=== PATIENT | female | born 1960 | race Caucasian/White ===

== ENCOUNTER 2021-08-26 10:00 | Outpatient (CLI) | payer MEDICARE, SELFPAY ==
--- NOTE | ~2021-08-26 | XR_ITS ---
EXAMINATION: XR ankle RT min 3V, XR foot RT min 3V DATE: 08/26/2021 10:39 INDICATION: Lateral sided right foot and ankle pain post fall TECHNIQUE: 1. Anteroposterior, mortise, additional oblique and lateral view of the right ankle were obtained. 2. Dorsoplantar, two oblique and lateral views of the right foot were obtained. COMPARISON: None. FINDINGS: Alignment of the right foot and ankle is normal. No fracture. Mild osteoarthritis at the tibiotalar, first metatarsophalangeal and a few tarsal metatarsal and interphalangeal joints. Small plantar calca nallely spur. No ankle joint effusion. Soft tissue swelling with subcutaneous edema about the ankle and distal calf. IMPRESSION: 1. No acute osseous abnormality. Reviewed, dictated and finalized at location A. SCREWER IMPRESSION: 1. No acute osseous abnormality.
== END 2021-08-26 10:01 | disposition home or self-care (01) ==
PROVIDERS: PCP Family Medicine Adolescent Medicine; Visit Provider Physician Assistant
DX: M25.572 Pain in left ankle and joints of left foot (principal)
CPT/HCPCS: 73610; 73630

== ENCOUNTER → 2021-12-02 06:56 | Outpatient (CLI) | payer MEDICARE, SELFPAY ==
--- NOTE | ~2021-12-02 | XR_ITS ---
XR tibia fibula RT 2V DATE: 12/02/2021 07:40 INDICATION: Right lower leg pain TECHNIQUE: AP and lateral views COMPARISON: None FINDINGS: Osteopenia. No fracture or dislocation, periosteal reaction or bone destruction. Normal ali gnment at the knee and ankle joints. Mild posterior and plantar calcaneal enthesopathy. IMPRESSION: Calcaneal enthesopathy Osteopenia Reviewed, dictated and finalized at location A. DESK ANALYST
--- NOTE | ~2021-12-02 | XR_ITS ---
XR hip RT 2V w AP pelvis DATE: 12/02/2021 07:41 INDICATION: Hip pain TECHNIQUE: AP pelvis. AP and lateral views of right hip COMPARISON: None FINDINGS: No pelvic fracture or bone destruction. The pubic symphysis and sacroiliac joints are intac t. Hip joint spaces are symmetric and relatively preserved. No fracture or dislocation, avascular necrosis or bone destruction of the right hip. IMPRESSION: No significant abnormality Reviewed, dictated and finalized at location A. TURBINE ELECTRICAL ENGINEER IMPRESSION: No significant abnormality
--- NOTE | ~2021-12-02 | XR_ITS ---
XR knee RT 3V DATE: 12/02/2021 07:40 INDICATION: Right lower leg pain TECHNIQUE: [place] and standing AP and lateral views COMPARISON: 08/31/2010 right knee FINDINGS: There is periarticular spurring at all 3 compartments and moderately prominent joint space target the medial compartment. No fracture or dislocation or joint effusion. No radiopaque interarticular loose body or chondrocalci nosis. There is diffuse osteopenia. No periosteal reaction or bone destruction. IMPRESSION: Tricompartment osteophytosis, most prominent at the medial compartment Osteopenia Reviewed, dictated and finalized at location A. OPERATOR IMPRESSION: Tricompartment osteophytosis, most prominent at the medial compartm ent Osteopenia
== END ==
PROVIDERS: PCP Family Medicine Adolescent Medicine; Visit Provider Family Medicine Adolescent Medicine
DX: M25.551 Pain in right hip (principal); M79.661 Pain in right lower leg; M77.31 Calcaneal spur, right foot; M85.861 Other specified disorders of bone density and structure, right lower leg; M25.771 Osteophyte, right ankle
CPT/HCPCS: 73502; 73562; 73590

== ENCOUNTER 2022-08-14 13:41 | Emergency (ER) | payer MEDICARE, MEDICAID, SELFPAY ==
[2022-08-14 13:48] VITALS: BP 173/91; PULSE 71; RESP 18; TEMP 37.3; O2SAT 100
--- NOTE | 2022-08-14 13:58 | ED.GENADULT ---
HPI - General Adult General Chief complaint: Epistaxis Stated complaint: nose bleed Time Seen by Provider: 08/14/22 13:48 Source: patient, RN notes reviewed and old records reviewed Mode of arrival: ambulatory Limitations: no limitations History of Present Illness HPI narrative: 61-year-old female presents to the [facility] with complaints of elevated blood pressure and a nose bleed. Currently nose is not bleeding. Has no other complaints at this time. Denies chest pain or headache. Related Data Home Medications Medication Instructions Recorded Confirmed omeprazole 40 mg capsule,delayed 40 mg PO DAILY 11/30/21 08/14/22 release cholecalciferol (vitamin D3) 50 50 mcg PO DAILY 05/20/22 05/20/22 mcg (2,000 unit) capsule herbal drugs tablet PO 05/20/22 05/20/22 hydrocodone 5 mg-acetaminophen 325 0.5 tablet PO BID PRN 05/20/22 05/20/22 mg tablet srnxfcwq-jkf-lvsdl acid 300 1 tablet PO DAILY 05/20/22 08/14/22 mcg-lycopene 600 mcg-lutein 300 mcg tablet (Men 50 Plus Multivitamin) vitamin Bcomplex no.10-folic acid tablet PO 05/20/22 05/20/22 ER 400 mcg tablet,extended release Allergies Allergy/AdvReac Type Severity Reaction Status Date / Time duloxetine AdvReac Severe Confusion Verified 08/14/22 14:00 gabapentin AdvReac Mild sleep walk Verified 08/14/22 14:00 Contrast Media Allergy Unknown RASH Uncoded 08/14/22 14:00 Review of Systems Review of Systems: All systems reviewed & are unremarkable except as noted in HPI and below Constitutional: Constitutional: Reports no additional constitutional complaints, Denies chills and Denies fever(s) Eyes: Eyes: Reports no additional eye complaints ENT: Reports as per HPI and Denies dizziness Cardiovascular: Cardiovascular: Reports no additional cardiovascular complaints Respiratory: Respiratory: Reports no additional respiratory complaints Gastrointestinal: Gastrointestinal: Reports no additional gastrointestinal complaints Musculoskeletal: Musculoskeletal: Reports no additional musculoskeletal complaints Integumentary/Breasts: Skin/Breast: Reports system reviewed and no additional complaints, except as docu Neurologic: Reports system reviewed and no additional complaints, except as documented Psychiatric: Psychiatric: Reports no additional psychiatric complaints Allergic/Immunologic: Allergic/Immunologic: Reports no additional allergic/immunologic complaints PMFSH Past Medical History Medical History Abnormal colonoscopy 09/20/19 3 polyps Surgical History Surgical History History of appendectomy History of bariatric surgery Gastric Sleeve 2017 History of section History of cholecystectomy 2018 Family History Family History Father Acute myocardial infarction Cerebrovascular accident Heart disease Hypertension Sibling Asthma Depression Hypertension Mother Carcinoma of colon Sibling Depression Daughter Depression Son Depression Other Colon polyp Social History Social History Smoking packs per day: 1 Smoking cigarettes per day: 20.0 Years smoked: 20 Smoking pack-years: 20.00 Smoking status: Former smoker Tobacco type: cigarettes Second hand tobacco smoke exposure: No Smoking end date: 10/03/99 Alcohol intake: never Substance use: never Substance use type: does not use Gender identity (if verbalized by the patient): Female Sexual Orientation (if Verbalized by the Patient): Straight or Heterosexual Spiritual care concerns: No Agree to blood products: Yes Comments At the time of my signature, I reviewed and agree with the nursing past medical, surgical, social, and family history. There is no relevant family history pertinent to the patient complaint.
== END 2022-08-14 14:07 | disposition home or self-care (01) ==
PROVIDERS: Emergency Provider Nurse Practitioner; PCP Family Medicine Adolescent Medicine
DX: I10 Essential (primary) hypertension (principal); R04.0 Epistaxis; Z87.891 Personal history of nicotine dependence; Z98.84 Bariatric surgery status
CPT/HCPCS: 99211; G0463

== ENCOUNTER 2022-09-02 18:50 | Emergency (ER) | payer MEDICARE, MEDICAID, SELFPAY ==
--- NOTE | 2022-09-02 18:52 | ED.FEMALEGU ---
HPI - Female Genitourinary General Chief complaint: Urogenital-Female Stated complaint: Urinary Problem Time Seen by Provider: 09/02/22 18:52 Source: patient and RN notes reviewed History of Present Illness HPI Narrative: Patient is a 61-year-old female who presents to the Urgent Care with complaints of a possible UTI with symptoms that started today with urinary frequency, suprapubic pressure and urgency. Patient denies any history of UTIs. States that she does have a history of kidney stones but denies blood in the urine, back pain. Patient denies any fevers, nausea, vomiting. Patient did take azo at approximately 3:00 p.m. this afternoon. No other acute complaints. No acute distress noted. Patient aware of the plan of care. Some parts of this dictation were generated by voice recognition software and may contain typographical and/or grammatical inaccuracies. Related Data Home Medications Medication Instructions Recorded Confirmed omeprazole 40 mg capsule,delayed 40 mg PO DAILY 11/30/21 09/02/22 release cholecalciferol (vitamin D3) 50 50 mcg PO DAILY 05/20/22 09/02/22 mcg (2,000 unit) capsule herbal drugs tablet PO 05/20/22 05/20/22 hydrocodone 5 mg-acetaminophen 325 0.5 tablet PO BID PRN Pain 05/20/22 09/02/22 mg tablet wptqfuig-joz-jpvdh acid 300 1 tablet PO DAILY 05/20/22 09/02/22 mcg-lycopene 600 mcg-lutein 300 mcg tablet (Men 50 Plus Multivitamin) vitamin Bcomplex no.10-folic acid tablet PO 05/20/22 05/20/22 ER 400 mcg tablet,extended release naproxen 500 mg tablet 500 mg PO BID 09/02/22 09/02/22 Allergies Allergy/AdvReac Type Severity Reaction Status Date / Time duloxetine AdvReac Severe Confusion Verified 09/02/22 19:00 gabapentin AdvReac Mild sleep walk Verified 09/02/22 19:00 Contrast Media Allergy Unknown RASH Uncoded 09/02/22 19:00 Review of Systems Review of Systems: CONSTITUTIONAL: Denies fever, chills, or sweats. EYES: Denies visual changes, redness, or discharge. ENT: Denies rhinorrhea, congestion, sore throat, or otalgia. CARDIOVASCULAR: Denies chest pain, palpitations, or edema. RESPIRATORY: Denies cough or dyspnea. GASTROINTESTINAL: Denies abdominal pain, nausea, vomiting, or diarrhea. GENITOURINARY: Reports of dysuria, suprapubic pressure, urgency and frequency SKIN: Denies rash or itching. MUSCULOSKELETAL: Denies back pain, joint pain, or myalgia. NEUROLOGIC: Denies headache, numbness, or weakness. All other systems reviewed are negative, except as documented in HPI. [facility] Past Medical History Medical History Abnormal colonoscopy 09/20/19 3 polyps Surgical History Surgical History History of appendectomy History of bariatric surgery Gastric Sleeve 2017 History of section History of cholecystectomy 2018 Family History Family History Father Acute myocardial infarction Cerebrovascular accident Heart disease Hypertension Sibling Asthma Depression Hypertension Mother Carcinoma of colon Sibling Depression Daughter Depression Son Depression Other Colon polyp Social History Social History Smoking packs per day: 1 Smoking cigarettes per day: 20.0 Years smoked: 20 Smoking pack-years: 20.00 Smoking status: Former smoker Tobacco type: cigarettes Second hand tobacco smoke exposure: No Smoking end date: 10/03/99 Alcohol intake: never Substance use: never Substance use type: does not use Gender identity (if verbalized by the patient): Female Sexual Orientation (if Verbalized by the Patient): Straight or Heterosexual Spiritual care concerns: No Agree to blood products: Yes Comments At the time of my signature, I reviewed and agree with the nursing past medical, surgical, social,
[2022-09-02 19:00] VITALS: BP 179/96; PULSE 88; RESP 16; TEMP 37.6; O2SAT 100
[2022-09-02 19:03] VITALS: BP 179/96; PULSE 88; RESP 16; TEMP 37.6; O2SAT 100
== END 2022-09-02 19:19 | disposition home or self-care (01) ==
PROVIDERS: Emergency Provider Nurse Practitioner Family; PCP Family Medicine Adolescent Medicine
DX: N39.0 Urinary tract infection, site not specified (principal); Z87.891 Personal history of nicotine dependence
CPT/HCPCS: 81003; 87077; 87086; 87186; 99213; G0463

== ENCOUNTER 2023-02-04 07:53 | Outpatient (CLI) | payer MEDICARE, MEDICAID, SELFPAY ==
--- NOTE | ~2023-02-04 | US_ITS ---
EXAMINATION: US abdomen complete DATE: 02/04/2023 08:52 INDICATION: Preoperative evaluation for bariatric surgery revision TECHNIQUE: Multiple grayscale and Doppler ultrasound images of the abdomen were obtained. COMPARISON: CT dated 01/02/2008 FINDINGS: The pancreatic head and body are normal in appearance. The pancreatic tail is not visualized. Liver has normal echogenicity and contour, with a smooth surface. No liver lesion identified. No intrahepat ic biliary duct dilation suspected. Portal venous flow was seen in the hepatopetal, normal direction and has normal Doppler waveform. The visualized proximal to mid inferior vena cava is normal. Gallbla dder is not visualized and reportedly surgically absent. Common bile duct measures 405 mm in maximal diameter which is within normal limits. There is normal renal contour and echogenicity bilaterally. T he right kidney measures 13.3 x 6.1 x 4.6 cm and the left 13.0 x 5.5 x 6.1 cm. There are no focal re nal lesions identified. There is no hydronephrosis. Normal spleen measuring 12.1 cm maximal cranioca udal length. Visualized aorta is normal in caliber measuring 2.4 cm AP diameter proximally, 2.0 cm in the mid aorta and 1.9 cm in the distal aorta. The right common iliac artery measures 1.1 cm in the l eft common iliac artery measures 1.4 cm. IMPRESSION: 1. Status post cholecystectomy. Otherwise unremarkable abdominal ultrasound. Reviewed, dictated and finalized at location B.
== END 2023-02-04 07:54 | disposition home or self-care (01) ==
PROVIDERS: PCP Family Medicine Adolescent Medicine; Visit Provider Family Medicine Adolescent Medicine
DX: E66.01 Morbid (severe) obesity due to excess calories (principal); Z90.49 Acquired absence of other specified parts of digestive tract
CPT/HCPCS: 76700

== ENCOUNTER 2023-02-23 09:23 | Outpatient (CLI) | payer MEDICARE, MEDICAID, SELFPAY ==
[2023-02-23 09:50] LABS: Pregnancy On Board Control Positive; Urine Pregnancy Test Negative
--- NOTE | 2023-02-25 10:51 | WPDPFTINT ---
PFT Procedure Performed PFT Procedure Performed Plethysmography (Lung Vol) Diffusing Cap (DLCO) Flow Vol Loop Spirometry w/o Bronchodil PFT Interpretation Lung volumes were measured with the body plethysmography method. The diminished expiratory reserve volume is due to obesity. The remaining lung volumes are unremarkable. Spirometry showed normal expiratory flow rates and a normal FEV1 to FVC ratio of 83%. No post bronchodilator study carried out. Lung diffusion capacity is within the normal range at 119% predicted. The flow-volume loop is unremarkable. Impression: Spirometry, lung volumes, and lung diffusion capacity all within the normal range.
== END 2023-02-23 09:24 | disposition home or self-care (01) ==
PROVIDERS: PCP Family Medicine Adolescent Medicine; Visit Provider Family Medicine Adolescent Medicine
DX: Z01.818 Encounter for other preprocedural examination (principal)
CPT/HCPCS: 81025; 94375; 94726; 94729

== ENCOUNTER 2023-12-30 07:28 | Outpatient (CLI) | payer MEDICARE, SELFPAY ==
--- NOTE | 2023-12-30 07:50 | ECHO_ITS ---
Patient Info Name: Genoveva Morales Age: 63 years : 1960 Gender: Female Ht: 61 in Wt: 250 lbs BSA: 2.28 m2 HR: 66 bpm BP: 138 / 75 mmHg Technical Quality: Good Exam Date: 12/30/2023 7:55 AM Exam Location: Echo Lab Patient Status: Outpatient Admit Date: 12/30/2023 Staff Ordering Physician: Negrito Rascon MD Medical Transcription Supervisor: Charmaine Newberry RDCS Attending Provider: Negrito Rascon MD Referring Physician: Lupe RASCON; Exam Type: CA echo doppler color flow Study Info Indications R55 - Syncope and collapse R01.1 - Cardiac murmur, unspecified Complete two-dimensional, color flow and Doppler transthoracic echocardiogram is performed. Summary 1. Complete two-dimensional, color flow and Doppler transthoracic echocardiogram is performed. 2. Left ventricular chamber dimension is normal. 3. Left ventricular systolic function is normal, estimated at 65-70%. 4. There is mild concentric increased left ventricular wall thickness. 5. The left ventricular diastolic function is grade I diastolic dysfunction. 6. E/e' 10 is mildly elevated. 7. Left atrial chamber dimension is moderately enlarged. 8. There is moderate aortic valve sclerosis. 9. There is mild aortic valve stenosis with a peak velocity of 243 cm/s, mean gradient of 12 mmHg, and aortic valve area of 1.9 cm2. 10. The mitral valve has moderately calcified annulus. 11. There is mild tricuspid valve regurgitation. 12. No pulmonary hypertension, estimated pulmonary arterial systolic pressure is 35 mmHg. 13. There is trace pulmonic regurgitation. 14. Dilated inferior vena cava with >50% collapse upon inspiration consistent with normal right atrial pressure, 10 mmHg. Left Ventricle E/e' 10 is mildly elevated. Left ventricular chamber dimension is normal. Left ventricular systolic function is normal, estimated at 65-70%. There is mild concentric increased left ventricular wall thickness. The left ventricular diastolic function is grade I diastolic dysfunction. Right Ventricle Right ventricular systolic function is normal and with normal TAPSE 3.1 cm. Right ventricular chamber dimension is normal. Left Atria Left atrial chamber dimension is moderately enlarged. Right Atria Right atrial chamber dimension is normal. Aortic Valve The aortic valve is trileaflet. There is moderate aortic valve sclerosis. There is mild aortic valve stenosis with a peak velocity of 243 cm/s, mean gradient of 12 mmHg, and aortic valve area of 1.9 cm2. There is no aortic valve regurgitation. Pulmonic Valve There is trace pulmonic regurgitation. Mitral Valve The mitral valve has moderately calcified annulus. There is no mitral valve stenosis. There is no mitral valve regurgitation. Tricuspid Valve There is mild tricuspid valve regurgitation. No pulmonary hypertension, estimated pulmonary arterial systolic pressure is 35 mmHg. Pericardium/Pleural There is no pericardial effusion. Inferior Vena Cava Dilated inferior vena cava with >50% collapse upon inspiration consistent with normal right atrial pressure, 10 mmHg. Aorta The aortic root size at the sinus of Valsalva is normal. Left Ventricular Outflow Tract Name Value Normal LVOT 2D LVOT Diameter 2.0 cm LVOT Doppler
== END 2023-12-30 07:29 | disposition home or self-care (01) ==
PROVIDERS: PCP Family Medicine Adolescent Medicine; Visit Provider Family Medicine Adolescent Medicine
DX: R01.1 Cardiac murmur, unspecified (principal); R93.1 Abnormal findings on diagnostic imaging of heart and coronary circulation; I35.8 Other nonrheumatic aortic valve disorders; I35.0 Nonrheumatic aortic (valve) stenosis; I34.81 Nonrheumatic mitral (valve) annulus calcification; I07.1 Rheumatic tricuspid insufficiency; I37.1 Nonrheumatic pulmonary valve insufficiency
CPT/HCPCS: 93306

== ENCOUNTER 2024-01-03 08:24 | Outpatient (CLI) | payer MEDICARE, SELFPAY ==
--- NOTE | 2024-01-03 10:30 | NEURO_ITS ---
Impression: # Non-diabetic complains of numbness of left hand. # Moderate left Carpal Tunnel Syndrome. # No ulnar neuropathy. # Needle/EMG exam abnormal in left APB. Nerve Conduction Studies Anti Sensory Summary Table Stim Site NR Peak (ms) P-T Amp (?V) Site1 Site2 Delta-P (ms) Dist (cm) Nikita (m/s) Left Median Anti Sensory (2-3nd Digit) Wrist 5.2 13.7 Wrist 2-3nd Digit 5.2 14.0 27 Wrist 5.3 12.8 Wrist 2-3nd Digit 5.2 14.0 27 Left Radial Anti Sensory (Base 1st Digit) Wrist 2.0 44.8 Wrist Base 1st Digit 2.0 0.0 Left Ulnar Anti Sensory (5th Digit) Wrist 2.5 49.4 Wrist 5th Digit 2.5 14.0 56 Motor Summary Table Stim Site NR Onset (ms) O-P Amp (mV) Site1 Site2 Delta-0 (ms) Dist (cm) Nikita (m/s) Left Median Motor (Abd Poll Brev) Wrist 6.8 3.9 Elbow Wrist 4.8 26.0 54 Elbow 11.6 3.6 Left Ulnar Motor (Abd Dig Minimi) Wrist 2.6 8.2 A Elbow Wrist 4.8 28.0 58 A Elbow 7.4 6.4 F Wave Studies NR F-Lat (ms) L-R F-Lat (ms) Left Median (Mrkrs) (Abd Poll Brev) 29.24 Left Ulnar (Mrkrs) (Abd Dig Min) 26.64 EMG Side Muscle Nerve Root Ins Act Fibs Amp Dur Recrt Comment Left 1stDorInt Ulnar C8-T1 Nml Nml Nml Nml Nml Left Ext Indicis Radial (Post Int) C7-8 Nml Nml Nml Nml Nml Left Ext Digitorum Radial (Post Int) C7-8 Nml Nml Nml Nml Nml Left BrachioRad Radial C5-6 Nml Nml Nml Nml Nml Left PronatorTeres Median C6-7 Nml Nml Nml Nml Nml Left Abd Poll Brev Median C8-T1 Nml Nml Nml >12ms +1 Left ABD Dig Min Ulnar C8-T1 Nml Nml Nml Nml Nml MTDD
== END 2024-01-03 08:25 | disposition home or self-care (01) ==
PROVIDERS: PCP Family Medicine Adolescent Medicine; Visit Provider Family Medicine Adolescent Medicine
DX: G56.02 Carpal tunnel syndrome, left upper limb (principal)
CPT/HCPCS: 95886; 95909

== ENCOUNTER 2024-07-27 12:09 | Outpatient (CLI) | payer MEDICARE, SELFPAY ==
[2024-07-27 13:11] LABS: Anion Gap 8 mmol/L (4-12); Blood Urea Nitrogen 14 mg/dL (7-17); Calcium 8.7 mg/dL (8.4-10.2); Carbon Dioxide 32 mmol/L (22-30); Chloride 99 mmol/L (98-107); Estimated Glomerular Filt Rate > 60; Glucose 94 mg/dL (65-110); Potassium 4.2 mmol/L (3.4-5.0); Sodium 139 mmol/L (137-145)
== END 2024-07-27 12:10 | disposition home or self-care (01) ==
LOC: ANHLAB 12:12
PROVIDERS: PCP Family Medicine Adolescent Medicine; Visit Provider Anesthesiology
DX: Z01.812 Encounter for preprocedural laboratory examination (principal); I10 Essential (primary) hypertension
CPT/HCPCS: 36415; 80048

== ENCOUNTER 2024-08-02 00:32 | Day surgery (SDC) | payer MEDICARE, SELFPAY ==
[2024-07-25 13:52] VITALS: BMI 49.9
--- NOTE | 2024-07-25 14:02 | PC.NURSE ---
Report to the Outpatient Waiting Room, entrance under the green pavilion located off [facility], at time _0630_ on DATE 08/02/24 _. Planned Procedure Time: __0830_.? Time changes happen often and if your time is changed the preop area will call you the afternoon before. - You and your visitor will be asked to self-screen and do not enter if you have any COVID symptoms. Please call surgeon if you need to reschedule. - A mask is optional within the hospital at this time. Patients may have clear liquids (water, carbonated beverages, clear teas, apple juice) until 8 hours prior to surgery. - No food from midnight until time of surgery and no smoking - Infants may have breast milk until 4 hours before surgery, formula 6 hours prior to surgery. - Children will be allowed to drink immediately following surgery.? If applicable, please bring a bottle or sippy cup to assist with drinking. Juice, water, soda, and popsicles are readily available.? For infants on formula, please bring formula the day of surgery.? Pacifiers are allowed. Take only the following medications with a SIP of water on the morning of surgery: __PAIN AND ANXIETY MEDICATION IF NEEDED DO NOT STOP ANY OF YOUR OTHER PRESCRIPTION MEDICATIONS PRIOR TO SURGERY EXCEPT THE FOLLOWING Medications to discontinue per physician VITAMINS AND SUPPLIMENTS Date to take last dose 07/29/24 Please no make-up, nail hebrew, hairspray, perfume, deodorant, or body powder the day of surgery.? No jewelry (including any body piercings) or valuables the day of surgery, leave them at home.? Please take a shower or bath the night before, or the morning of, surgery with an antibacterial soap.? Wear comfortable, loose fitting clothing.? Children are encouraged to wear pajamas. - Jewelry must be removed prior to entering the operating room.? Rings and piercings that are not removed may be cut off. - The hospital will not accept responsibility for valuables.? - Please leave all valuables, including medications, at home the day of surgery. If you are going home after surgery, a licensed regional company hazmat tanker driver must drive you home.? - NO public transportation without another adult if you receive anesthesia. - We recommend that an adult stay with you for 24 hours following discharge. - We also recommend that you do not drive, make important decision, drink alcoholic beverages, or take any drugs that were not prescribed by your health care provider for at least 24 hours after your discharge time. For Pediatric surgeries, we recommend two adults accompany the child home. Follow any additional instructions given to you from your surgeon. Telephone instructions given to PATIENT_and asked if any additional questions and then verbalized understanding. Patient advised to call surgeon office or pre surgery nurse liaison [phone] if any additional questions.
--- NOTE | 2024-08-01 17:11 | P.PNAN_ITS ---
Anes - Initial Pre Proc Eval Procedure: Operation Date: 08/02/24 08:30 Proposed Procedures p Left Endoscopic Carpal Tunnel Release, Possible Open, Left Cubital Tunnel Release - Wilver Armas MD Date/Time: 08/01/24 17:11 Surgeon: Wilver Armas MD Pre Op Diagnosis: Lt Carpal Tunnel, Lesion Ulnar Nerve Left Patient Data Age: 63 Gender: F Height: 1.55 m Weight: 120 kg Allergies Allergy/AdvReac Type Severity Reaction Status Date / Time trazodone Allergy Swelling, Verified 07/25/24 14:08 ACHES duloxetine AdvReac Severe Confusion Verified 07/25/24 13:45 gabapentin AdvReac Mild sleep walk Verified 07/25/24 13:45 Contrast Media Allergy Unknown RASH Uncoded 07/25/24 13:45 Home Medications Medication Instructions Recorded Confirmed Type cholecalciferol (vitamin D3) 50 50 mcg PO DAILY 05/20/22 02/28/24 History mcg (2,000 unit) capsule herbal drugs tablet PO 05/20/22 02/28/24 History atorvastatin 20 mg tablet 20 mg PO DAILY 02/28/24 07/30/24 History chlordiazepoxide HCl 10 mg capsule 10 mg PO Q12H PRN anxiety #20 caps 02/28/24 02/28/24 Rx hydrochlorothiazide 25 mg tablet 25 mg PO DAILY #90 tabs 02/28/24 02/28/24 Rx lisinopril 20 mg tablet 20 mg PO DAILY 02/28/24 02/28/24 History pantoprazole 20 mg tablet,delayed 40 mg PO QAM 02/28/24 02/28/24 History release tramadol 50 mg tablet 50 mg PO Q6H PRN pain #120 tabs 02/28/24 02/28/24 Rx vitamin B complex 1 cap PO DAILY #90 caps 02/28/24 02/28/24 Rx oxybutynin chloride 15 mg 15 mg PO DAILY #30 tabs 05/28/24 Rx tablet,extended release 24 hr tamsulosin 0.4 mg capsule 0.4 mg PO DAILY #7 caps 05/28/24 Rx hydrocodone 5 mg-acetaminophen 325 See Rx Instructions PO QID PRN 05/29/24 Rx mg tablet Pain #30 tabs pramipexole 1 mg tablet See Rx Instructions .Route 07/31/24 Rx .COMPLEX #270 tabs Patient hx anesthesia problems: none Family hx anesthesia problems: none Results Review: All pre-operative results and documents have been reviewed as part of the pre- operative evaluation. [facility] Past Medical History Medical History Abnormal colonoscopy 09/20/19 3 polyps Left carpal tunnel syndrome Surgical History Surgical History History of appendectomy History of bariatric surgery Gastric Sleeve 2017 History of section History of cholecystectomy 2018 Family History Family History Father Acute myocardial infarction Cerebrovascular accident Heart disease Hypertension Sibling Asthma Depression Hypertension Mother Carcinoma of colon Sibling Depression Daughter Depression Son Depression Other Colon polyp Social History Social History Smoking packs per day: 0.5 Smoking cigarettes per day: 10.0 Years smoked: 20 Smoking pack-years: 10.00 Smoking status: Former smoker Tobacco type: cigarettes Second hand tobacco smoke exposure: No Smoking end date: 10/03/99 Additional smoking assessment comments: STOPPED IN 1999 Alcohol intake: former Substance use: never Substance use type: does not use Living arrangements: with family Occupation/Education: other Gender identity (if verbalized by the patient): Female Sexual Orientation (if Verbalized by the Patient): Straight or Heterosexual Spiritual care concerns: No Agree to blood products: Yes Anes - Eval Final PreProcedure Day of Procedure 08/01/24 17:11 Patient weight: morbidly obese Heart: regular rate and rhythm Lungs: clear to auscultation and normal air movement Airway: Mallampati scale class II and other (upper dentures) Neurological: alert and oriented Last oral intake: >/= 8 hours ASA classification: III Emergent: no Anesthetic plan: proceed Anesthesia type and monitoring: general GIVS and standard monitoring Results Review: All pre-operative results and documents have been reviewed as part of the pre- operative evaluation. Informed Consent: The patient's anesthetic plan and its attendant risks and benefits were discussed with the patient/family/POA. Questions were solicited and answers provided to the satisfaction of the patient/family/POA.
[2024-08-02] VITALS (7 sets, daily range): BP systolic 112–154; BP diastolic 60–91; PULSE 54–68; RESP 15–18; TEMP 36.2–36.3; O2SAT 100
[2024-08-02] MEDS: LACTATED RINGERS 1,000 ML 30 ML IV CONT ×2 (06:50→08:56)
--- NOTE | 2024-08-02 07:00 | PM.HPGS ---
History of Present Illness History of Present Illness Chief complaint: Lt Carpal Tunnel, Lesion Ulnar Nerve Left Narrative: Patient seen and examined in pre-operative holding area. No interval change in medical history or symptoms. Patient recalls previous discussion of benefits and alternatives to procedure. Continues to desire to proceed with left endoscopic possible open carpal tunnel release and left cubital tunnel release. Reviewed procedure, post-op expectations and risks including but not limited to bleeding, infection, injury to tendon/nerve/vessel, decreased hand function, stiffness, RSD, no change or worsening of symptoms. I discussed the possible use of assistants and their participation in the case. Patient stated understanding and signed the consent form wishing to proceed. Review of Systems Review of Systems: All systems reviewed & are unremarkable except as noted in HPI and below PMFSH Past Medical History Medical History Abnormal colonoscopy 09/20/19 3 polyps Left carpal tunnel syndrome Surgical History Surgical History History of appendectomy History of bariatric surgery Gastric Sleeve 2017 History of section History of cholecystectomy 2018 Family History Family History Father Acute myocardial infarction Cerebrovascular accident Heart disease Hypertension Sibling Asthma Depression Hypertension Mother Carcinoma of colon Sibling Depression Daughter Depression Son Depression Other Colon polyp Social History Social History Smoking packs per day: 0.5 Smoking cigarettes per day: 10.0 Years smoked: 20 Smoking pack-years: 10.00 Smoking status: Former smoker Tobacco type: cigarettes Second hand tobacco smoke exposure: No Smoking end date: 10/03/99 Additional smoking assessment comments: STOPPED IN 1999 Alcohol intake: former Substance use: never Substance use type: does not use Living arrangements: with family Occupation/Education: other Gender identity (if verbalized by the patient): Female Sexual Orientation (if Verbalized by the Patient): Straight or Heterosexual Spiritual care concerns: No Agree to blood products: Yes Meds Home Medications and Allergies Home Medications Medication Instructions Recorded Confirmed Type cholecalciferol (vitamin D3) 50 50 mcg PO DAILY 05/20/22 02/28/24 History mcg (2,000 unit) capsule herbal drugs tablet PO 05/20/22 02/28/24 History atorvastatin 20 mg tablet 20 mg PO DAILY 02/28/24 07/30/24 History chlordiazepoxide HCl 10 mg capsule 10 mg PO Q12H PRN anxiety #20 caps 02/28/24 02/28/24 Rx hydrochlorothiazide 25 mg tablet 25 mg PO DAILY #90 tabs 02/28/24 02/28/24 Rx lisinopril 20 mg tablet 20 mg PO DAILY 02/28/24 02/28/24 History pantoprazole 20 mg tablet,delayed 40 mg PO QAM 02/28/24 02/28/24 History release tramadol 50 mg tablet 50 mg PO Q6H PRN pain #120 tabs 02/28/24 02/28/24 Rx vitamin B complex 1 cap PO DAILY #90 caps 02/28/24 02/28/24 Rx oxybutynin chloride 15 mg 15 mg PO DAILY #30 tabs 05/28/24 Rx tablet,extended release 24 hr tamsulosin 0.4 mg capsule 0.4 mg PO DAILY #7 caps 05/28/24 Rx hydrocodone 5 mg-acetaminophen 325 See Rx Instructions PO QID PRN 05/29/24 Rx mg tablet Pain #30 tabs pramipexole 1 mg tablet See Rx Instructions .Route 07/31/24 Rx .COMPLEX #270 tabs Allergies Allergy/AdvReac Type Severity Reaction Status Date / Time trazodone Allergy Swelling, Verified 07/25/24 14:08 ACHES duloxetine AdvReac Severe Confusion Verified 07/25/24 13:45 gabapentin AdvReac Mild sleep walk Verified 07/25/24 13:45 Contrast Media Allergy Unknown RASH Uncoded 07/25/24 13:45 Exam Narrative: unchnaged Assessment and Plan Assessment and plan (1) Bilateral carpal tunnel syndrome: Code(s): G56.03 - Carpal tunnel syndrome, bilateral upper limbs Status: Acute Assessment and Plan: cont as above (2) Left carpal tunnel syndrome: Code(s): G56.02 - Carpal tunnel syndrome, left upper limb Status: Acute
--- NOTE | 2024-08-02 07:01 | W.PM.PROC2 ---
Procedure Note - Detailed Date of Procedure 08/02/24 Pre-op Diagnosis left carpal and cubital tunnel syndrome Post-op Diagnosis Same Procedure Performed left ectr and CuTR Surgeon Wilver Armas MD Payroll Secretary lino fields pa-c Anesthesia MAC Description of Procedure INFORMED CONSENT: The patient was seen and examined and marked in the pre-op area.? The patient signed the consent form. PROCEDURE IN DETAIL:The patient taken back to OR on the stretcher in supine position. Time out performed with anesthesia, surgeon and staff agreeing on patient's name site and surgery to be performed SCDs were placed on the lower extremities and inflated. A tourniquet was placed on {left} upper extremity and antibiotics given IV After anesthesia administered sedation I injected {10}cc 1%lido with epi and 0.5% marcaine plain at the operative sites The?{left upper extremity}?was prepped and draped in sterile fashion the??{left upper extremity} was? exsanguinated with Esmarch bandage and tourniquet inflated to 250mmHg I made a transverse incision in the {left} volar distal wrist crease through skin and dermis with 15 blade scalpel.? Littler scissors spread down to antebrachial fascia. A small incision was made in antebrachial fascia allowing access to Carpal tunnel. I proceeded with sequential dilation staying in line with the ring finger and hugging the hook of the hamate.? I then used the synovial elevator to free any adhesions from the underside of the transverse carpal ligament. Next I was able to insert the Microaire endoscopic carpal tunnel device with direct visualization of the transverse fibers on the monitor and proceeded with complete segmental retrograde release of the ligament in its entirety.? I irrigated with normal saline and closed with 4-0 monocryl for dermis and subcuticular closure. I next proceeded with making a longitudinal incision between two heads for flexor carpi ulnaris at end of {left} cubital tunnel with 15 blade scalpel.? Littler scissors were used to spread down to FCU fascia.? An incision was made in FCU fascia and ulnar nerve identified exiting cubital tunnel.? I proceeded with complete retrograde release of the cubital tunnel including 7cm proximal for the intermuscular septum.? The nerve appeared healthy with visible vaso nervorum.? There was no subluxation on full elbow range of motion. ? I irrigated with normal saline and closure with 4-0 monocryl for dermis and subcuticular. The incisions were covered with Dermabond then 4x4s, miguel, and a posterior elbow and volar wirst splint for patient safety, security and comfort and secured with josé bandages after the tourniquet was let down noting the hand was warm and well perfused.? Patient awaken from anesthesia and transferred to recovery in stable condition Complications - none EBL- 1cc Disposition - home in stable conditions lino fields pa-c was essential for positioning, retraction, closure and dressing placement [facility] Billing Surgery - Charge Forward: Surgery Billing ([id number], [id number] and [id number] for lino)
[2024-08-02] MEDS: FAMOTIDINE 20 MG/2 ML VIAL IV PUSH (08:00)
[2024-08-02] MEDS: ceFAZolin 3 GM/D5W 100 ML 100 ML IVPB (08:17)
[2024-08-02] MEDS: LIDO 1%/EPINEPHRINE 1:100,000 20 ML VIAL 10 ML INFILTRATE (08:23)
== END 2024-08-02 10:15 | disposition home or self-care (01) ==
PROVIDERS: PCP Family Medicine Adolescent Medicine; Visit Provider Plastic Surgery
PROC: 01N54ZZ Release Median Nerve, Percutaneous Endoscopic Approach (ICD-10-PCS; CPT 29848; principal; 2024-08-02 08:30)
DX: G56.02 Carpal tunnel syndrome, left upper limb (principal); G56.22 Lesion of ulnar nerve, left upper limb; E66.01 Morbid (severe) obesity due to excess calories; Z68.43 Body mass index [BMI] 50.0-59.9, adult; Z79.891 Long term (current) use of opiate analgesic; Z98.890 Other specified postprocedural states; Z90.49 Acquired absence of other specified parts of digestive tract; Z98.84 Bariatric surgery status; Z87.891 Personal history of nicotine dependence; Z86.0100 Personal history of colon polyps, unspecified; Z80.0 Family history of malignant neoplasm of digestive organs; Z82.49 Family history of ischemic heart disease and other diseases of the circulatory system
CPT/HCPCS: 64718; 29848; J0690; J1100; J2003; J2004; J2250; J2405; J2704; J3010; J7120

== ENCOUNTER 2024-08-16 08:04 | Emergency (ER) | payer MEDICARE, SELFPAY ==
[2024-08-16 08:15] VITALS: BP 155/83; PULSE 70; RESP 17; TEMP 36.8; O2SAT 99
--- NOTE | 2024-08-16 08:17 | ED_ITS ---
HPI - URI/Sore Throat General Chief Complaint: Upper Respiratory Infection Stated Complaint: Congestion/Cough/Chest Congestion Time Seen by Provider: 08/16/24 08:17 Source: patient, RN notes reviewed and old records reviewed Mode of arrival: ambulatory Limitations: no limitations History of Present Illness HPI Narrative: 63-year-old female to [facility] with complaint of nasal congestion, cough, postnasal drainage since Tuesday. Patient states that she went shopping in a store on Tuesday that had mold issues. Patient reports history of former smoking and states that she finds herself to be hypersensitive to environmental irritants such as mold. Patient has attempted to treat symptoms home with Tylenol and mouthwash. Patient has not attempted to use decongestants. Patient able tolerate fluids by mouth. Patient resting in exam room in no acute distress. Respirations even and nonlabored. Related Data Home Medications Medication Instructions Recorded Confirmed atorvastatin 20 mg tablet 20 mg PO DAILY 02/28/24 08/16/24 lisinopril 20 mg tablet 20 mg PO DAILY 02/28/24 08/16/24 Allergies Allergy/AdvReac Type Severity Reaction Status Date / Time trazodone Allergy Swelling, Verified 07/25/24 14:08 ACHES duloxetine AdvReac Severe Confusion Verified 07/25/24 13:45 gabapentin AdvReac Mild sleep walk Verified 07/25/24 13:45 Contrast Media Allergy Unknown RASH Uncoded 07/25/24 13:45 Review of Systems Review of Systems: All systems reviewed & are unremarkable except as noted in HPI and below Constitutional: Constitutional: Reports no additional constitutional complaints Eyes: Eyes: Reports no additional eye complaints ENT: Reports as per HPI, Reports nasal congestion and Reports post nasal drip Cardiovascular: Cardiovascular: Reports no additional cardiovascular complaints, Denies chest pain and Denies dyspnea Respiratory: Respiratory: Reports no additional respiratory complaints, Reports cough and Denies dyspnea Musculoskeletal: Musculoskeletal: Reports no additional musculoskeletal complaints Neurologic: Reports system reviewed and no additional complaints, except as documented Psychiatric: Psychiatric: Reports no additional psychiatric complaints PMFSH Past Medical History Medical History Abnormal colonoscopy 09/20/19 3 polyps Left carpal tunnel syndrome Surgical History Surgical History History of appendectomy History of bariatric surgery Gastric Sleeve 2017 History of section History of cholecystectomy 2018 Family History Family History Father Acute myocardial infarction Cerebrovascular accident Heart disease Hypertension Sibling Asthma Depression Hypertension Mother Carcinoma of colon Sibling Depression Daughter Depression Son Depression Other Colon polyp Social History Social History Smoking packs per day: 0.5 Smoking cigarettes per day: 10.0 Years smoked: 20 Smoking pack-years: 10.00 Smoking status: Former smoker Tobacco type: cigarettes Second hand tobacco smoke exposure: No Smoking end date: 10/03/99 Additional smoking assessment comments: STOPPED IN 1999 Alcohol intake: former Substance use: never Substance use type: does not use Living arrangements: with family Occupation/Education: other Gender identity (if verbalized by the patient): Female Sexual Orientation (if Verbalized by the Patient): Straight or Heterosexual Spiritual care concerns: No Agree to blood products: Yes Comments At the time of my signature, I reviewed and agree with the nursing past medical, surgical, social, and family history. There is no relevant family history pertinent to the patient complaint. Exam Const: General: cooperative, comfortable, no acute distress, alert, tired appearing, well groomed and well nourished Nutritional Appearance: well nourished Orientation/consciousness: patient oriented x3 Limitations: no limitations HENMT: Head: normal to inspection Ears: external ears normal and Abnormal EAC present cerumen impaction on the left Face/Nose/Sinus: Normal external nose present, Normal nares present, normal facial exam, No erythema and No edema Face and sinus: normal facial exam, no erythema and no edema Mouth: Yes Normal oral and palatal mucosa present Throat: posterior oropharynx abnormal erythema and postnasal drainage Eyes: General: appearance normal, both eyes and all related structures Neck: Neck: normal visual inspection, full ROM and no meningeal signs Lymphatic: no lymphadenopathy noted and no lymphedema noted Chest: Chest palpation & inspection: normal inspection of the chest Resp: Effort & Inspection: normal respiratory effort and able to speak in complete sentences Auscultation: clear to auscultation bilaterally Cardio: Jugular venous distension: no JVD Rate: regular rate Rhythm: regular rhythm Back/Spine/Pelvis: Cervical Spine: cervical ROM normal Skin: General skin exam: normal color, no rashes or lesions noted and turgor normal Neuro: General: patient oriented x3, gait normal, moves all extremities and no meningeal signs Speech: normal speech Gait exam (Neuro): Normal gait present Extrem: General: normal to inspection, full ROM and capillary refill normal Psych: Appearance: grossly normal and well kempt Course Course Emergency Course: Some parts of this dictation were generated by voice recognition software and may contain typographical and/or grammatical inaccuracies. Level of Care: Express Care Visit Vital Signs Vital signs: Vital Signs Temperature 36.8 C 08/16/24 08:15 Pulse Rate 70 08/16/24 08:15 Respiratory Rate 17 08/16/24 08:15 Blood Pressure 155/83 H 08/16/24 08:15 Pulse Oximetry 99 08/16/24 08:15 Oxygen Delivery Room Air 08/16/24 08:15 Temperature 36.8 C 08/16/24 08:15 Pulse Rate 70 08/16/24 08:15 Respiratory Rate 17 08/16/24 08:15 Blood Pressure 155/83 H 08/16/24 08:15 Pulse Oximetry 99 08/16/24 08:15 Oxygen Delivery Room Air 08/16/24 08:15 reviewed MDM - URI/Sore Throat MDM Narrative Medical decision making narrative: 63-year-old female to [facility] with complaint of nasal congestion, cough, postnasal drainage since Tuesday. Patient states that she went shopping in a store on Tuesday that had mold issues. Patient reports history of former smoking and states that she finds herself to be hypersensitive to environmental irritants such as mold. Patient has attempted to treat symptoms home with Tylenol and mouthwash. Patient has not attempted to use decongestants. Patient able tolerate fluids by mouth. Patient resting in exam room in no acute distress. Respirations even and nonlabored. On exam, patient appears tired. Posterior oropharynx erythematous with postnasal drainage. Exam otherwise unremarkable. Patient is sitting comfortably in exam room nontoxic in appearance. Patient appropriate for outpatient treatment and follow-up. Discharge instructions reviewed with patient, as well as provided in writing per nursing staff. The instructions also include specific and strict return/GO TO THE ER as well as f/u information. All questions have been answered, and the patient deny any further questions with discharge and discharge plan. Some parts of this dictation were generated by voice recognition software and may contain typographical and/or grammatical inaccuracies. Differential Diagnosis Differential diagnosis: Likely upper respiratory infection, croup, otitis media, sinusitis, viral infection, bronchitis, influenza and pharyngitis Discharge Plan Discharge Clinical Impression: Impacted cerumen, left ear, Upper respiratory infection Patient Disposition: Home, Self-Care Condition: Stable Instructions: Upper Respiratory Infection (DC) Additional Instructions: Use Debrox in left ear as discussed. Your symptoms are likely due to a viral illness, which is not treated with antibiotics. Viral symptoms can be present for up to a few weeks. -Tylenol per package directions for fever or pain. -Antihistamine medication such as Benadryl at night and Zyrtec/Claritin/Gracie during the day can help improve symptoms. -Use Flonase twice a day for 5 days then daily to help reduce the inflammation and dry up your sinuses. -You can also use Coricidin. Be sure to drink plenty of water with these medications at least 8 ounces with every dose and it is important to drink 8 to 10 glasses of water per day. Water is a natural decongestant -Eat and drink things that are easy to swallow, like tea or soup, or popsicles. -Oral rinses such as: Salt water gargles and/or may use topical anesthetic (eg. Chloraseptic spray) or lozenges to relieve dryness or throat pain). -Frequent hand washing or hand rubber goods inspector tester is one of the best ways to prevent spread of infection. -Using a vaporizer or humidifier at night will also help thin secretions and h elp with coughing up phlegm. -Follow up with primary care provider in 2-3 days if condition is not improving; or seek ER visit if you have trouble breathing, cannot drink enough fluids, have muffled voice, difficulty opening your mouth, or severe swelling. Prescriptions: No Action atorvastatin 20 mg tablet 20 mg PO DAILY lisinopril 20 mg tablet 20 mg PO DAILY hydrochlorothiazide 25 mg tablet 25 mg PO DAILY Qty: 90 3RF oxybutynin chloride 15 mg tablet extended release 24hr 15 mg PO DAILY Qty: 30 3RF Follow-up/Referrals: Negrito Andrade MD [Primary Care Provider] -
== END 2024-08-16 08:41 | disposition home or self-care (01) ==
PROVIDERS: Emergency Provider Nurse Practitioner Family; PCP Family Medicine Adolescent Medicine
DX: H61.22 Impacted cerumen, left ear (principal); J06.9 Acute upper respiratory infection, unspecified; Z79.899 Other long term (current) drug therapy; Z87.891 Personal history of nicotine dependence
CPT/HCPCS: 99211; G0463

== ENCOUNTER 2025-05-13 08:09 | Outpatient (CLI) | payer MEDICARE, MEDICAID, SELFPAY ==
--- OUTSIDE RECORDS SUMMARY | 2025-05-13 08:14 | XMS_ITS | Clinical Summary ---
Author Organization [facility] Address [address] [place] [address] Care Team Providers Care Gut Cleaner Name Role Phone Brittany Weston MD Unavailable Ry Martinez MD Unavailable Phani Gómez MD Unavailable [phone] Source Comments [facility],non-owned Affiliates and Associated Physician Practices is amultiple site organization consisting of ambulatory clinics and hospital sitesin [place], [place], [place] and [place]. This disclosure is being madepursuant to the Care Everywhere program and may not contain all information available regarding this patient. Last updated 18.[facility] Allergies Active Allergy Reactions Criticality Noted Date Comments Povidone Iodine Urticaria 11/04/2015 Contrast Medications * Be aware that medications may not be up to date on this document. Alwaysverify current medications with the patient. clonazePAM (KLONOPIN) 1 MG tablet Take 1 mg by mouth nightly as needed Active hydrochlorothia zide (HYDRODIURIL) 25 MG tablet Take 25 mg by mouth once daily as needed Active lisinopril (PRINIVIL; ZESTRIL) 40 MG tablet Take 20 mg by mouth once daily Active Misc Natural Products (NARCOSOFT HERBAL LAX) CAPS Take 2 Tabs by mouth every evening Active pramipexole (MIRAPEX) 1 MG tabletIndicatio ns:2 at night and 1 in the afternoon Take 2 tablets by mouth at bedtime Takes 1 tablet in the afternoon and 2 tablets at bedtime Reasons: 2 at night and 1 in the afternoon Active traMADol (ULTRAM) 50 MG tablet Take 50 mg by mouth every 6 hours as needed (patient is taking up to 6 tablets per day for left knee pain.) Takes 2 tabs at HS and maybe 1 during the day Active chlordiazePOXID E (LIBRIUM) 10 MG capsule Take 10 mg by mouth 3 times daily as needed for Anxiety or Agitation Active cyanocobalamin (VITAMIN B-12) 1000 MCG tabletIndicatio ns:Fibromyalgia Take 1,000 mcg by mouth once daily 5 8 Active pantoprazole EC (PROTONIX) 40 MG tabletIndicatio ns:takes 2 at night and 1 in the afternoon Take 40 mg by mouth once daily Reasons: takes 2 at night and 1 in the afternoon 3 8 Active gabapentin (NEURONTIN) 300 MG capsuleIndicati ons:Fibromyalgi a Take 1 capsule by mouth at bedtime 90 capsule 1 8 Active Additional Information Patient taking differently:300 mg Oral AT BEDTIME,Indications: takes 2 in the AM and 1 in the PM, Reported on 11/09/2018 cyclobenzaprine (FLEXERIL) 10 MG tabletIndicatio ns:Fibromyalgia Take 1 tablet by mouth at bedtime 8 tablet 9 Active DULoxetine (CYMBALTA) 30 MG capsule TAKE 2 CAPSULES BY MOUTH AT BEDTIME 180 capsule 9 Active Active Problems Problem Noted Date Diagnosed Date High risk medications (not anticoagulants) long- term use 07/22/2016 Fibromyalgia 07/22/2016 Family History Medical History Relation Name Comments Rheumatological Disease Daughter also siblings and sunitha with vachet bachets disease Arthritis - Rheumatoid Mother Fibromyalgia Other aunt Relation Name Status Comments Daughter Mother Other Social History Tobacco Use Types Packs/Day Years Used Date Smoking Tobacco: Former Cigarettes Q uit: 07/03/2000 Smokeless Tobacco: Never Alcohol Use Standard Drinks/Week Comments No 0 (1 standard drink = 0.6 oz pur e alcohol) Comments Unknown Sex and Gender Information Value Date Recorded Sex Assigned at Not on file Legal Sex Female 2:23 PM TOY DESIGNER Gender Identity Not on file Sexual Orientation Not on file Occupation Industry Job Start Date Job End Date disability Not on file Not on file Not on file Last Filed Vital Signs Vital Sign Reading Time Taken Comments Blood Pressure 140/74 01/04/2019 11:31 AM CDT Pulse 65 01/04/2019 11:31 AM CDT Temperature - - Respiratory Rate - - Oxygen Saturation - - Inhaled Oxygen Concentration - - Weight 106.1 kg (234 lb) 01/04/2019 11:31 AM CDT Height 160 cm (5' 3) 01/04/2019 11:31 AM CDT Body Mass Index 41.45 01/04/2019 11:31 AM CDT Plan of Treatment Health Maintenance Due Date Last Done Comments BONE DENSITY TESTING 1960 COLOGUARD (AGES 45-75) - COLON CA SCREENING 1959 COLON MONITORING 1959 COLONOSCOPY - COLON CA SCREENING 1959 CT COLONOGRAPHY - COLON CA SCREENING 1959 Colorectal Cancer Screening 1959 FIT - COLON CA SCREENING 1959 FLEX SIG - COLON CA SCREENING 1959 LIPID TESTING 1959 MAMMOGRAM 1959 HIV SCREENING 12/10/1974 DTAP/TDAP/TD VACCINES (1 - Tdap) 12/10/1978 PNEUMOCOCCAL VACCINE 50+ (1 of 1 - PCV) 12/10/2009 ZOSTER VACCINE (1 of 2) 12/10/2009 SCREENING FOR DIABETES 11/09/2021 9, 03/02/2018, 12/30/2016, Additional history exists COVID-19 VACCINE ( - 2023- season) 2024 DEPRESSION SCREENING 10/03/2024 INFLUENZA VACCINE (#1) 2025 Respiratory Syncytial Virus (RSV) Vaccine Pt: or over 60 yrs (1 - 1-dose 75+ series) 12/10/2034 HEPATITIS C SCREENING Completed 11/04/2015 HEPATITIS B VACCINE Aged Out No longe r eligible based on patient's age to complete this topic HIB VACCINE Aged Out No longer eligi ble based on patient's age to complete this topic HPV VACCINE Aged Out No longer eligi ble based on patient's age to complete this topic MENINGOCOCCAL (Group B) VACCINE SHARED DECISION-MAKING Aged Out No longer eligible based on patient's age to complete this topic MENINGOCOCCAL GROUPS A/C/Y/W VACCINE Aged Out No longer eligible based on patient's age to complete this topic Procedures Procedure Name Priority Date/Time Associated Diagnosis Comments COMPREHENSIVE METABOLIC PANEL Routine 11/09/2018 2:55 PM TOY DESIGNER Fibromyalgia HEPATITIS SCREEN ACUTE Routine 6 11:47 AM TOY DESIGNER Malaise and fatigue from Last 3 Months or Most Recently Relevant to Health Maintenance Results * (ABNORMAL) COMPREHENSIVE METABOLIC PANEL (11/09/2018 2:55 PM TOY DESIGNER) Glucose 87 74 - 106 mg/dL [facility] ACCOUNT BILL BUN 16 7 - 21 mg/dL [facility] ACCOUNT BILL Creatinine 0.52 0.50 - 1.30 mg/dL [facility] ACCOUNT BILL eGFR by MDRD >60 >60 mL/min/1.7 3m2 [facility] ACCOUNT BILL eGFR by MDRD >60 >60 mL/min/1.7 3m2 [facility] ACCOUNT BILL Sodium 139 136 - 145 mmol/L [facility] ACCOUNT BILL Potassium 3.9 3.5 - 5.1 mmol/L [facility] ACCOUNT BILL Chloride 101 98 - 107 mmol/L [facility] ACCOUNT BILL CO2 32(H) 22 - 31 mmol/L [facility] ACCOUNT BILL Calcium 8.6 8.5 - 10.1 mg/dL [facility] ACCOUNT BILL Protein Total 7.4 6.4 - 8.2 gm/dL [facility] ACCOUNT BILL Albumin 3.6 3.4 - 5.0 gm/dL [facility] ACCOUNT BILL Bilirubin Total 0.4 0.2 - 1.0 mg/dL [facility] ACCOUNT BILL Alkaline Phosphatase 118 38 - 126 U/L [facility] ACCOUNT BILL AST 12 5 - 40 U/L [facility] ACCOUNT BILL ALT 20 13 - 61 U/L [facility] ACCOUNT BILL Blood BLOOD SPECIMEN / Unknown 11/09/2018 2:55 PM TOY DESIGNER 11/09/2018 Narrative Resulting Agency Comment [facility] [address] [place] [phone] us Brittany Weston MD LAB - CHEMISTRY ORDERABLES Final Result [facility] ACCOUNT BILL [address] [place] [address] * HEPATITIS SCREEN ACUTE (11/04/2015 11:47 AM TOY DESIGNER) Hepatitis A Virus Antibody IgM Non Reactive Non Reactive [facility] INSURANCE BILL Hepatitis B Virus Surface Antigen Non Reactive Non Reactive [facility] INSURANCE BILL Hepatitis B Core Virus Antibody IgM Non Reactive Non Reactive [facility] INSURANCE BILL Hepatitis C Antibody Non Reactive Non Reactive [facility] INSURANCE BILL Comment: Non Reactive - Antibodies to Hepatitis C virus (HCV) were no t detected, result does not exclude early acute HCV infection. Blood specimen (specimen) BLOOD SPECIMEN / Unknown 11/04/2015 11:47 AM TOY DESIGNER 11/04/2015 3:44 PM TOY DESIGNER Narrative Resulting Agency Comment [facility] [address] [id number] Brittany Weston MD LAB - CHEMISTRY ORDERABLES Final Result [facility] INSURANCE BILL [address] [place] [address] from Last 3 Months or Most Recently Relevant to Health Maintenance Insurance [facility] Care Teams Gut Cleaner Relationship Specialty Start [place] [address] [place] [address] Rheumatology 02/03/16 [place] [address] [place] [address] Orthopedic Surgery 02/03/17 Phani Gómez MD [address] [facility] [address] [place] [address] Surgery 06/27/17
--- OUTSIDE RECORDS SUMMARY | 2025-05-13 08:15 | XMS_ITS | Clinical Summary ---
Author Organization [facility] Address [address] [place] [address] Care Team Providers Care Rn Transitional Name Role Phone Negrito Andrade MD Primary Care Prov ider Janak Jaime MENTAL HEALTH ASSISTANT Unavailable [phone] Allergies Active Allergy Reactions Criticality Noted Date Comments Duloxetine Other (See comments) Low 07/15/2022 Sleep walking Gabapentin Other (See comments) Low 12/16/2020 Sleep walking and disorientation Iodinated Contrast Media Rash Medium Medications hydroCHLOROthia zide (HYDRODIURIL) 25 mg tabletIndicatio ns:Edema Take 1 tablet (25 mg total) by mouth every morning Active chlordiazePOXID E (LIBRIUM) 10 mg capsule Take 1 capsule (10 mg total) by mouth 3 (three) times a day as needed for anxiety Active lisinopril (PRINIVIL,ZESTR IL) 20 mg tabletIndicatio ns:hypertension Take 2 tablets (40 mg total) by mouth every morning Active multivitamin tabletIndicatio ns:Vitamin Deficiency Prevention Take 1 tablet by mouth every morning Active pramipexole (MIRAPEX) 1 mg tabletIndicatio ns:3 tabs qd Take 1 tablet (1 mg total) by mouth 3 (three) times a day One tab in the morning and two in the evening Active traMADol (ULTRAM) 50 mg tablet Take 1 tablet (50 mg total) by mouth every 6 (six) hours as needed for pain Active vitamin B complex capsule Take 1 capsule by mouth every morning Active cholecalciferol (VITAMIN D-3) 2000 unit tablet Take 1 tablet (2,000 Units total) by mouth every morning 2 Active amitriptyline (ELAVIL) 10 mg tabletIndicatio ns:sleep Take 1 tablet (10 mg total) by mouth nightly 2 Active cyclobenzaprine (FLEXERIL) 10 mg tabletIndicatio ns:Muscle Spasm Take 1 tablet (10 mg total) by mouth every 8 (eight) hours Post surgery: Every 8 hours for 4 days 12 tablet 3 Active calcium citrate-vitamin D3 200 mg-6.25 mcg (250 unit) tabletIndicatio ns:Hypocalcemia Prevention Take 2 tablets by mouth 3 (three) times a day Start post-surgery 180 tablet 11 3 Active HYDROcodone-josé taminophen (NORCO) 5-325 mg per tabletIndicatio ns:Pain Take 1 tablet by mouth every 6 (six) hours as needed for pain Active UNABLE TO FIND Take 1 each by mouth nightly Med Name: HerbLax Active atorvastatin (LIPITOR) 20 mg tablet Take 1 tablet (20 mg total) by mouth nightly [address] (PROTONIX) 40 mg EC tablet TAKE 1 TABLET (40 MG TOTAL) BY MOUTH 2 (TWO) TIMES A DAY START POST-SURGERY 60 tablet 4 Active ibuprofen (ADVIL,MOTRIN) 800 mg tablet Take 1 tablet (800 mg total) by mouth 3 (three) times a day 21 tablet 4 Active ondansetron (ZOFRAN) 4 mg tabletIndicatio ns:Prevention of Post-Operative Nausea and Vomiting Take 1 tablet (4 mg total) by mouth every 8 (eight) hours as needed for nausea or vomiting Start post-surgery 20 tablet 4 Active albuterol HFA (PROVENTIL HFA,VENTOLIN HFA,PROAIR HFA) 90 mcg/actuation inhaler Inhale 2 puffs every 6 (six) hours as needed for wheezing 1 each 5 10/08/19 26 Active ipratropium-alb uteroL (DUO-NEB) 0.5-2.5 mg/3 mL nebulizer solution Take 3 mL by nebulization every 6 (six) hours as needed for wheezing for up to 14 days 42 mL 5 Active benzonatate (TESSALON) 100 mg capsuleIndicati ons:Cough Take 1 capsule (100 mg total) by mouth every 8 (eight) hours 21 capsule 5 Active predniSONE (DELTASONE) 20 mg tablet Take 2 tablets (40 mg) by mouth daily 8 tablet 5 Active Active Problems Problem Noted Date Diagnosed Date Morbid obesity with BMI of 50.0-59.9, adult 04/02 Morbid (severe) obesity due to excess calories 0 04/14/2023 Gastroesophageal reflux dise ase with esophagitis without hemorrhage 01/11/2023 Nausea and vomiting 01/27/2022 Overview (01/27/2022): Added automatically from request for surgery [id number] Eating disorder, unspecified 01/26/2022 Bariatric surgery status 03/21/2018 Malabsorption due to intolerance, not elsewhere classified 03/21/2018 Anxiety 07/26/2017 Obstructive sleep apnea syndrome 07/06/2017 Fibromyalgia 07/22/2016 High risk medications (not anticoagulants) long- term use 07/22/2016 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 Morbid obesity 04/29/2015 Arthralgia of multiple joints 04/29/2015 Pain 04/29/2015 Shoulder pain 02/16/2014 Overview (01/05/2017): Shoulder pain Rheumatoid arthritis 02/16/2014 Overview (01/05/2017): Arthritis, rheumatoid Knee pain 02/16/2014 Overview (01/06/2017): Knee pain Hypertension 09/18/2013 Drug indicated 04/25/2013 Overview (01/05/2017): High risk medication use Swelling of extremity 02/16/2011 Resolved Problems Problem Noted Date Diagnosed Date Resolved Date BMI 50.0-59.9, adult 07/06/201701/18/ 019 Surgical History Surgery Date Site/Laterality Comments APPENDECTOMY TUBAL LIGATION 10/03/1989 - 10/02/1990 SECTION 10/03/1983 - 10/02/1984 CHOLECYSTECTOMY 10/03/1990 - 10/02/1991 SLEEVE GASTROPLASTY 11/14/2017 BREAST BIOPSY 10/03/1982 - 10/02/1983 Right ESOPHAGOGASTRODUODENOSCOPY 01/31/2022 - 03/02/2022 KIDNEY STONE SURGERY multiple lithotripsy COLONOSCOPY Medical History Medical History Date Comments Rheumatoid arthritis (HCC) Calculus of kidney Asthma Osteoarthritis RLS (restless legs syndrome) Morbid obesity (HCC) Fibromyalgia Sleep apnea Hypertension GERD (gastroesophageal reflux disease) Lymphedema lower extremitie s Venous stasis of both lower extremities Family History Medical History Relation Name Comments Gout Father Family history of gout - (Added by TW Conv) Arthritis Mother Family history of arthritis - (Added by TW Conv) Cancer Other 1 Family history of Cancer -; Diabetes Other 1 Stroke Other 2 Family history of Stroke; Hypertension Other 3 Family history of Hypertension; Anesthesia problems Neg Hx Relation Name Status Comments Father of possibl e [place] or CVA Mother Other 1 Other 2 Other 3 Paternal Grandmother possibl e CVA Sister delayed emergen ce Social History Tobacco Use Types Packs/Day Years Used Date Smoking Tobacco: Former Cigarettes 0.8 22 1 978 - 2000 Smokeless Tobacco: Never Tobacco Cessation:Counseling Given: Not Answered Alcohol Use Standard Drinks/Week Comments No 0 (1 standard drink = 0.6 oz pur e alcohol) AUDIT-C Answer Date Recorded Q1: How often do you have a drink containing alc ohol? Never 04/14/2023 Average Number of Drinks Not on file 023 Frequency of Binge Drinking Not on file 04/02 Personal Safety Answer Date Recorded Have you ever been in or are you currently in a harmful physical or emotional relationship or is someone making you feel afraid or unsafe? Denies 11/08/2024 Comments No Sex and Gender Information Value Date Recorded Sex Assigned at Not on file Legal Sex Female 1:55 AM CIVIL PREPAREDNESS TRAINING OFFICER Gender Identity Not on file Sexual Orientation Not on file Obstetrics History Para Term AB IAB SAB Ectopic Multiple Livin g Live Births 3 2 2 Date Outcome GA Total Labor Labor/2nd/3rd Weight Sex Type Anes PTL Almita A1 A5 Name Clin Term Term Last Filed Vital Signs Vital Sign Reading Time Taken Comments Blood Pressure 157/73 11/09/2024 2:17 AM CIVIL PREPAREDNESS TRAINING OFFICER Pulse 63 11/09/2024 2:17 AM CIVIL PREPAREDNESS TRAINING OFFICER Temperature 36.4 C (97.6 F) 11/09/2024 2:17 AM CIVIL PREPAREDNESS TRAINING OFFICER Respiratory Rate 18 11/08/2024 7:18 PM CIVIL PREPAREDNESS TRAINING OFFICER Oxygen Saturation 96% 11/09/2024 1:45 AM CIVIL PREPAREDNESS TRAINING OFFICER Inhaled Oxygen Concentration - - Weight 117.9 kg (260 lb) 11/08/2024 7:18 PM CIVIL PREPAREDNESS TRAINING OFFICER Height 162.6 cm (5' 4) 11/08/2024 7:18 PM CIVIL PREPAREDNESS TRAINING OFFICER Body Mass Index 44.63 11/08/2024 7:18 PM CIVIL PREPAREDNESS TRAINING OFFICER Plan of Treatment Health Maintenance Due Date Last Done Comments Cervical Cancer Screening 1959 Colon Cancer Screening-Colonoscopy 1959 Depression Screening 1959 Osteoporosis Screening-Bone Density Scan 1959 Hepatitis B Screening 12/10/1977 Pneumococcal vaccine 65+ (1 of 1 - PCV) 12/10/2009 Zoster Vaccine (1 of 2) 12/10/2009 Breast Cancer Screening-Mammogram 06/14/2020 019 Fall Risk Assessment 04/15/2024 04/15/2023 Well Visit 65+ 12/10/2024 Influenza Vaccine (#1) 2025 DTaP/Tdap/Td Vaccine (2 - Td or Tdap) 03/18/2033 Hepatitis C Screening Completed 01/31/2023, 013 Procedures Procedure Name Priority Date/Time Associated Diagnosis Comments HEPATITIS PANEL, ACUTE Routine 01/31/2023 7:50 AM CDT Morbid obesity (HCC) Primary hypertension Gastroesophageal reflux disease with esophagitis without hemorrhage Postsurgical malabsorption BMI 50.0-59.9, adult (HCC) Bariatric surgery status H/O gastric sleeve Malabsorption due to intolerance, not elsewhere classified High risk medications (not anticoagulants) long-term use SCREENING MAMMOGRAM BILATERAL W ZUHAIR Schedule Routine, Read Routine (OP Routine) 06/14/2019 9:26 AM CDT Encounter for screening mammogram for malignant neoplasm of breast from Last 3 Months or Most Recently Relevant to Health Maintenance Results * Hepatitis panel, acute (01/31/2023 7:50 AM CDT) Hep A IgM Nonreactive Nonreactive [facility] (ALEJANDRO) Comment: Interpretive Data: If Hep A IgM Ab is reported as Equivocal, a new sample should be drawn in two weeks for testing. Current interpretive data was last revised on 19. Testing performed by: [facility], [address] [place] [address]., [id number] Hep B core IgM Nonreactive Nonreactive [place] FLOODER MICHAEL (ALEJANDRO) Comment: Interpretive Data If HepB Core IgM Ab is reported as Equivocal, a new sample should be drawn in two weeks for testing. Current interpretive data was last revised on 19. Testing performed by: [facility], [address] [place] [address]., [id number] Hep C Ab Nonreactive Nonreactive JOÃO RODRIGUEZ (ALEJANDRO) Comment: Interpretive Data Nonreactive: Antibodies to HCV not detected. Does NOT exclude the possibility of recent exposure to HCV. Equivocal: Equivocal for HCV antibodies. Supplemental molecular testing will be automatically performed to determine infection status in accordance with current CDC screening recommendations. Reactive: Positive for HCV antibodies. This may represent current or past HCV infection. Supplemental molecular testing will be automatically performed to determine current infection status in accordance with current CDC screening recommendations. Interpretive data was last revised on 2019. Testing performed by: [facility], [address] [place] [address]., [id number] HepBsAg Nonreactive Nonreactive JOÃO RODRIGUEZ (ALEJANDRO) Comment:Testing performed by : [facility], [address] [place] [address]., [id number] Blood 01/31/2023 7:50 AM CDT 01/31/2023 2:28 PM CDT us Denise Bennett MD LAB MICROBIOLOGY - GENER AL ORDERABLES Final Result [facility] (ALEJANDRO) [address] [facility] Department of Laboratories [place], [place] [id number] * Screening Mammogram Bilateral W Zuhair (06/14/2019 9:26 AM CDT) Anatomical Region Laterality Modality Breast Bilateral Mammography 06/14/2019 9:27 AM CDT Impressions 06/14/2019 9:30 AM CDT 1. NO DEFINITIVE MAMMOGRAPHIC EVIDENCE OF MALIGNANCY 2. ANNUAL FOLLOW-UP RECOMMENDED BI-RADS 1 Electronically signed by: Emiliano Parikh M.D. Narrative 06/14/2019 9:30 AM CDT SCREENING MAMMOGRAM BILATERAL W ZUHAIR HISTORY: Encounter for screening mammogram for malignant neoplasm of breast TECHNIQUE: 2 views of each breast were obtained with bilateral breast tomosynthesis. COMPARISON: Baseline exam FINDINGS: The breasts are composed of scattered fibroglandular densities. No suspicious mass or calcification is seen to suggest mammographic evidence of malignancy. Digital technology was employed plus computer aided detection software ([employer]) was utilized in interpretation of these images. This facility utilizes a reminder system to notify patient's of yearly mammograms. us Self Screening Mammogram IMG MAMMO PROCEDURES Fi nal Result from Last 3 Months or Most Recently Relevant to Health Maintenance Insurance [employer]ET[employer] MEDICARE GOLD [facility] AETNA MEDICARE GOLD Advance Directives For more information, please contact: [phone] * Full Code (Latest Code Status on File) Date Activated Date Inactivated Comments 04/14/2023 10:59 AM 04/15/2023 10:08 PM Care Teams Rn Transitional Relationship Specialty Start Date End Date Negrito Andrade MD [address] [place] [address] PCP - General 11/18/16 Janak Jaime NP [phone] [place] [address] Nurse Practitioner General Surgery 04/15/23
--- OUTSIDE RECORDS SUMMARY | 2025-05-13 08:15 | XMS_ITS | Encounter Summary ---
Author Organization [facility] Health Address [address] [place] [address] Care Team Providers Care Assistant Store Manager Name Role Phone Brittany Weston MD Unavailable Radha Orosco Unavailable Unavailable Ry Martinez MD Unavailable Phani Gómez MD Unavailable Encounter Details Date Type Department Care Team (Late st Contact Info) Description 11/26/2015 [facility] Outpatient Visit [facility] [address] [place] [address] [place] [address] [place] [address] Social History Tobacco Use Types Packs/Day Years Used Date Smoking Tobacco: Former Cigarettes Q uit: 07/03/2000 Smokeless Tobacco: Never Alcohol Use Standard Drinks/Week Comments No 0 (1 standard drink = 0.6 oz pur e alcohol) Comments Unknown Sex and Gender Information Value Date Recorded Sex Assigned at Not on file Legal Sex Female 2:23 PM ANIMAL TREATMENT INVESTIGATOR Gender Identity Not on file Sexual Orientation Not on file Occupation Industry Job Start Date Job End Date disability Not on file Not on file Not on file documented as of this encounter Plan of Treatment Not on file documented as of this encounter Visit Diagnoses Not on filedocumented in this encounter Care Teams Assistant Store Manager Relationship Specialty Start [place] [address] [address] [place] [address] Rheumatology 02/03/16 Radha Orosco 12/30/16 12/30/16 Ry Martinez MD Orthopedic Surgery 02/03/17 Phani Gómez MD [address] [facility] [address] [place] [address] Surgery 06/27/17 documented as of this encounter
--- OUTSIDE RECORDS SUMMARY | 2025-05-13 08:15 | XMS_ITS | Clinical Summary ---
Author Organization [facility] Care Team Providers Care Porcelain Finish Sprayer Name Role Phone Negrito Andrade MD Primary Care Provider + Allergies Active Allergy Reactions Criticality Noted Date Comments Other Other (see Comments) Medium Iodine, got hot and rash Medications DULoxetine (CYMBALTA) 30 MG PO CPEP Take by mouth. 1 tab po Active clonazePAM 1 MG PO TABS Take by mouth. Activ e predniSONE 10 MG PO TABS Take by mouth. Take one tablet by mouth daily for 10 days Active calcium-vitamin D (OSCAL 500/200 D-3) 500-200 MG-UNIT PO TABS Take by mouth. Take one tablet by mouth twice daily Active ergocalciferol 71668 UNIT PO CAPS Take by mouth. Take one tablet by mouth once a week for 6 weeks Active citalopram (CELEXA) 20 MG PO TABS Take by mouth. Activ e folic acid 400 MCG PO TABS Take by mouth. Act everton hydrochlorothia zide 25 MG PO TABS Take 25 mg by mouth daily. Active lisinopril 40 MG PO TABS Take 20 mg by mouth daily. Active methotrexate 2.5 MG PO TABS Take by mouth. 10 tablets once week Active pramipexole (MIRAPEX) 1 MG PO TABS Take 1 mg by mouth 3 times daily. Active naproxen 500 MG PO TABS Take by mouth. Activ e Misc Natural Products (NARCOSOFT HERBAL LAX) PO CAPS Take by mouth. Activ e hydroxychloroqu ine (PLAQUENIL) 200 MG PO TABS Take by mouth 2 times daily. Active traMADol 50 MG PO TABS Take 50 mg by mouth every 6 hours as needed. Active azithromycin (ZITHROMAX Z-MARCELINA) 250 MG Tablet 2 tab(s) daily for 1 day, then 1 tab(s) daily for days 2-5. 6 Tab 0 6 Active methylPREDNISol one (MEDROL DOSPACK) 4 MG Tablet See product package insert for dosing schedule 21 Tab 0 6 Active Additional Information Patient not taking.Reported on 09/20/2019 albuterol (PROAIR HFA) 108 (90 BASE) MCG/ACT Aerosol Solution take 2 Puffs by inhalation every 4 hours as needed for Wheezing. 8.5 g 0 6 Active ofloxacin (OCUFLOX) 0.3 % Solution Place 2 Drops in affected eye(s) 4 times daily. 5 mL 0 6 Active GABAPENTIN PO Take by mouth. A ctive Multiple Vitamin (MULTI-VITAMIN PO) Take 1 Tab by mouth daily. Active Active Problems No known active problems Family History Medical History Relation Name Comments Cancer Brother metastatic Cancer Mother colon Relation Name Status Comments Brother Father Mother Alive Social History Tobacco Use Types Packs/Day Years Used Date Smoking Tobacco: Former Cigarettes 1 15 1 10/10/1984 - 08/10/2000 Smokeless Tobacco: Never Comments:quit 1999 Alcohol Use Standard Drinks/Week Comments No 0 (1 standard drink = 0.6 oz pur e alcohol) Comments No Sex and Gender Information Value Date Recorded Sex Assigned at Not on file Legal Sex Female 2:09 PM CDT Gender Identity Not on file Sexual Orientation Not on file Occupation Industry Job Start Date Job End Date clerical Not on file Not on file Not on file Last Filed Vital Signs Vital Sign Reading Time Taken Comments Blood Pressure 95/63 09/20/2019 11:08 AM MUSIC JOURNALIST Pulse 73 09/20/2019 11:08 AM MUSIC JOURNALIST Temperature 36 C (96.8 F) 09/20/2019 11:08 AM MUSIC JOURNALIST Respiratory Rate 16 09/20/2019 11:08 AM MUSIC JOURNALIST Oxygen Saturation 97% 09/20/2019 11:08 AM MUSIC JOURNALIST Inhaled Oxygen Concentration - - Weight 113.4 kg (250 lb) 08/10/2019 11:00 AM MUSIC JOURNALIST Height 154.9 cm (5' 1) 08/10/2019 11:00 AM MUSIC JOURNALIST Body Mass Index 47.24 08/10/2019 11:00 AM MUSIC JOURNALIST Plan of Treatment Health Maintenance Due Date Last Done Comments Hepatitis C Virus (HCV) Screening 1960 TdaP Immunization 1960 SARS-COV-2 Immunization (#1) 12/10/1964 Zoster Immunization (1 of 2) 12/10/1978 Pap Smear 12/10/1980 Cervical Cancer Screening (CCS) 12/10/1989 HPV/Cotest 12/10/1989 Cologuard 12/10/2004 Immunochemical Fecal Occult Blood 12/10/2004 Pneumococcal Immunization (5 0+ years) (1 of 1 - PCV) 12/10/2009 Respiratory Syncytial Virus (RSV) Immunization (Adult) (1 - Risk 60-74 years 1-dose series) 2019 Colonoscopy 09/20/2024 09/20/2019 Colorectal Cancer Screening 09/20/2024 Influenza Immunization (#1) 2025 Hepatitis B Immunization Aged Out No longer eligible based on patient's age to complete this topic Human Papillomavirus (HPV) Immunization Aged Out No longer eligible b ased on patient's age to complete this topic Meningococcal Immunization (ACWY) Aged Out No longer eligible based on patient's age to complete this topic Rotavirus Immunization Aged Out No lo nger eligible based on patient's age to complete this topic Insurance MEDICARE C HUMANA Care Teams Porcelain Finish Sprayer Relationship Specialty Start Date End Date Negrito Andrade MD PCP - General Family Medicine 11/16/15
--- OUTSIDE RECORDS SUMMARY | 2025-05-13 08:15 | XMS_ITS | Encounter Summary ---
Author Organization [facility] Health Address [address] [place] [address] Care Team Providers Care Sql Ssrs Ssis Developer Name Role Phone Brittany Weston MD Unavailable Radha Orosco Unavailable Unavailable Ry Martinez MD Unavailable Phani Gómez MD Unavailable Encounter Details Date Type Department Care Team (Late st Contact Info) Description 09/11/2015 [facility] Outpatient Visit [facility] [address] [place] [address] Unknown, Provider Social History Tobacco Use Types Packs/Day Years Used Date Smoking Tobacco: Never Assessed Comments Unknown Sex and Gender Information Value Date Recorded Sex Assigned at Not on file Legal Sex Female 2:23 PM HUMAN CAPITAL MANAGER Gender Identity Not on file Sexual Orientation Not on file documented as of this encounter Plan of Treatment Not on file documented as of this encounter Visit Diagnoses Not on filedocumented in this encounter Care Teams Sql Ssrs Ssis Developer Relationship Specialty [place] [id number] [id number] Rheumatology 02/03/16 Radha Orosco 12/30/16 12/30/16 Ry Martinez MD Orthopedic Surgery 02/03/17 Phani Gómez MD [address] [address] Surgery 06/27/17 documented as of this encounter
--- OUTSIDE RECORDS SUMMARY | 2025-05-13 08:15 | XMS_ITS | Encounter Summary ---
Author Organization [facility] Health Address [address] [place] [address] Care Team Providers Care Director Of Maternity Services Name Role Phone Brittany Weston MD Unavailable Radha Orosco Unavailable Unavailable Ry Martinez MD Unavailable Phani Gómez MD Unavailable Encounter Details Date Type Department Care Team (Late st Contact Info) Description 11/04/2015 [facility] Outpatient Visit [facility] [address] [place] [address] [place] [address] [place] [address] Social History Tobacco Use Types Packs/Day Years Used Date Smoking Tobacco: Former Cigarettes Q uit: 07/03/2000 Smokeless Tobacco: Never Alcohol Use Standard Drinks/Week Comments No 0 (1 standard drink = 0.6 oz pur e alcohol) Comments Unknown Sex and Gender Information Value Date Recorded Sex Assigned at Not on file Legal Sex Female 2:23 PM DIRECTOR AGRICULTURAL SERVICES Gender Identity Not on file Sexual Orientation Not on file Occupation Industry Job Start Date Job End Date disability Not on file Not on file Not on file documented as of this encounter Plan of Treatment Not on file documented as of this encounter Visit Diagnoses Not on filedocumented in this encounter Care Teams Director Of Maternity Services Relationship Specialty Start [place] [address] [place] [address] Rheumatology 02/03/16 Radha Orosco 12/30/16 12/30/16 Ry Martinez MD Orthopedic Surgery 02/03/17 Phani Gómez MD [address] [facility] [address] [place] [address] Surgery 06/27/17 documented as of this encounter
--- NOTE | 2025-05-13 11:30 | NEURO_ITS ---
Impression: # Complains of numbness of right hand ? # Right moderate Carpal Tunnel Syndrome ? # Subtle right Ulnar Neuropathy ? # Needle exam normal # Only right extremity tested per patient request. Nerve Conduction Studies ?Stim Site NR Peak (ms) P-T Amp (?V) Site1 Site2 Delta-P (ms) Dist (cm) Nikita (m/s) Right Median Anti Sensory (2-3nd Digit) Wrist ? 5.1 30.8 Wrist 2-3nd Digit 5.1 14.0 27 Wrist ? 5.3 18.0 Wrist 2-3nd Digit 5.1 14.0 27 Right Radial Anti Sensory (Base 1st Digit) Wrist ? 2.3 17.9 Wrist Base 1st Digit 2.3 0.0 Right Ulnar Anti Sensory (5th Digit) Wrist ? 2.8 55.6 Wrist 5th Digit 2.8 14.0 50 ?Stim Site NR Onset (ms) O-P Amp (mV) Site1 Site2 Delta-0 (ms) Dist (cm) Nikita (m/s) Right Median Motor (Abd Poll Brev) Wrist ? 6.0 3.8 Elbow Wrist 6.1 29.0 48 Elbow ? 12.1 3.1 Right Ulnar Motor (Abd Dig Minimi) Wrist ? 4.1 3.7 A Elbow Wrist 4.8 24.0 50 A Elbow ? 8.9 3.6 B Elbow Wrist 3.4 18.0 53 B Elbow ? 7.5 1.8 Electromyography ?Side Muscle Nerve Root Ins Act Fibs Amp Dur Recrt Comment Right 1stDorInt Ulnar C8-T1 Nml Nml Nml Nml Nml Right Ext Indicis Radial (Post Int) C7-8 Nml Nml Nml Nml Nml Right Ext Digitorum Radial (Post Int) C7-8 Nml Nml Nml Nml Nml Right BrachioRad Radial C5-6 Nml Nml Nml Nml Nml Right PronatorTeres Median C6-7 Nml Nml Nml Nml Nml Right Abd Poll Brev Median C8-T1 Nml Nml Nml Nml Nml Right ABD Dig Min Ulnar C8-T1 Nml Nml Nml Nml Nml Right FlexPolLong Median (Ant Int) C7-8 Nml Nml Nml Nml Nml Right Abd Poll Long Radial (Post Int) C7-8 Nml Nml Nml Nml Nml
== END 2025-05-13 08:10 | disposition home or self-care (01) ==
PROVIDERS: PCP Family Medicine Adolescent Medicine; Visit Provider Physician Assistant Surgical
DX: G56.03 Carpal tunnel syndrome, bilateral upper limbs (principal); G56.21 Lesion of ulnar nerve, right upper limb
CPT/HCPCS: 95886; 95909

== ENCOUNTER 2025-06-04 07:47 | Outpatient (CLI) | payer MEDICARE, MEDICAID, SELFPAY ==
--- OUTSIDE RECORDS SUMMARY | 2025-06-04 07:50 | XMS_ITS | Clinical Summary ---
Author Organization [facility] Address [address] [place] [address] Care Team Providers Care Air Twist Operator Name Role Phone Negrito Andrade MD Primary Care Prov ider Janak Jaime PRODUCT MANAGENT INTERN Unavailable [phone] Allergies Active Allergy Reactions Criticality Noted Date [...] (01/27/2022): Added automatically from request for surgery [id number] Eating disorder, unspecified 01/26/2022 Bariatric surgery status [...] Name Status Comments Father of possibl e [place] or CVA Mother Other 1 Other 2 [...] on file Legal Sex Female 1:55 AM SANIPRACTIC PHYSICIAN Gender Identity Not on file Sexual Orientation Not on file Obstetrics History Para Term AB IAB SAB Ectopic Multiple Livin g Live Births 3 2 2 Date Outcome GA Total Labor Labor/2nd/3rd Weight Sex Type Anes PTL Almita A1 A5 Name Clin Term Term Last Filed Vital Signs Vital Sign Reading Time Taken Comments Blood Pressure 157/73 11/09/2024 2:17 AM SANIPRACTIC PHYSICIAN Pulse 63 11/09/2024 2:17 AM SANIPRACTIC PHYSICIAN Temperature 36.4 C (97.6 F) 11/09/2024 2:17 AM SANIPRACTIC PHYSICIAN Respiratory Rate 18 11/08/2024 7:18 PM SANIPRACTIC PHYSICIAN Oxygen Saturation 96% 11/09/2024 1:45 AM SANIPRACTIC PHYSICIAN Inhaled Oxygen Concentration - - Weight 117.9 kg (260 lb) 11/08/2024 7:18 PM SANIPRACTIC PHYSICIAN Height 162.6 cm (5' 4) 11/08/2024 7:18 PM SANIPRACTIC PHYSICIAN Body Mass Index 44.63 11/08/2024 7:18 PM SANIPRACTIC PHYSICIAN Plan of Treatment Health Maintenance Due Date [...] last revised on 19. Testing performed by: [facility], [address] [place] [address]., [id number] Hep B core IgM Nonreactive Nonreactive [place] FLOODER MICHAEL (ALEJANDRO) Comment: Interpretive Data If HepB Core IgM Ab is reported as Equivocal, a new sample should be drawn in two weeks for testing. Current interpretive data was last revised on 19. Testing performed by: [facility], [address] [place] [address]., [id number] Hep C Ab Nonreactive Nonreactive JOÃO RODRIGUEZ [...] last revised on 2019. Testing performed by: [facility], [address] [place] [address]., [id number] HepBsAg Nonreactive Nonreactive JOÃO RODRIGUEZ (ALEJANDRO) Comment:Testing performed by : [facility], [address] [place] [address]., [id number] Blood 01/31/2023 7:50 AM CDT 01/31/2023 2:28 PM CDT us Denise Bennett MD LAB MICROBIOLOGY - GENER AL ORDERABLES Final Result JOÃO RODRIGUEZ (ALEJANDRO) 1 [facility] Department of Laboratories [place], [place] [id number] * Screening Mammogram Bilateral W Zuhair (06/14/2019 [...] was employed plus computer aided detection software ([employer]) was utilized in interpretation of these images. This facility utilizes a reminder system to notify patient's of yearly mammograms. us Self Screening Mammogram IMG MAMMO PROCEDURES Fi nal Result from Last 3 Months or Most Recently Relevant to Health Maintenance Insurance A[employer] MEDICARE GOLD [facility] AETNA MEDICARE GOLD Advance Directives For more information, please contact: [phone] * Full Code (Latest Code Status on File) Date Activated Date Inactivated Comments 04/14/2023 10:59 AM 04/15/2023 10:08 PM Care Teams Air Twist Operator Relationship Specialty Start Date End Date Negrito Andrade MD PCP - General 11/18/16 Janak Jaime NP [phone] [place] [address] Nurse Practitioner General Surgery 04/15/23
--- OUTSIDE RECORDS SUMMARY | 2025-06-04 07:50 | XMS_ITS | Clinical Summary ---
Author Organization [facility] Care Team Providers Care Disposal Operator Name Role Phone Negrito Andrade MD [...] tablet by mouth twice daily Active ergocalciferol 85096 UNIT PO CAPS Take by mouth. Take [...] Comments Blood Pressure 95/63 09/20/2019 11:08 AM AIR FORCE SENIOR OFFICER Pulse 73 09/20/2019 11:08 AM AIR FORCE SENIOR OFFICER Temperature 36 C (96.8 F) 09/20/2019 11:08 AM AIR FORCE SENIOR OFFICER Respiratory Rate 16 09/20/2019 11:08 AM AIR FORCE SENIOR OFFICER Oxygen Saturation 97% 09/20/2019 11:08 AM AIR FORCE SENIOR OFFICER Inhaled Oxygen Concentration - - Weight 113.4 kg (250 lb) 08/10/2019 11:00 AM AIR FORCE SENIOR OFFICER Height 154.9 cm (5' 1) 08/10/2019 11:00 AM AIR FORCE SENIOR OFFICER Body Mass Index 47.24 08/10/2019 11:00 AM AIR FORCE SENIOR OFFICER Plan of Treatment Health Maintenance Due [...] topic Insurance MEDICARE C HUMANA Care Teams Disposal Operator Relationship Specialty Start Date End Date Negrito Andrade MD PCP - General Family Medicine 11/16/15
--- OUTSIDE RECORDS SUMMARY | 2025-06-04 07:50 | XMS_ITS | Encounter Summary ---
Author Organization [facility] Health Address [address] [place] [address] Care Team Providers Care Commercial Teller Name Role Phone Brittany Weston MD Unavailable Radha Orosco Unavailable Unavailable Ry Martinez MD Unavailable Phani Gómez MD Unavailable [phone] Encounter Details Date Type Department Care Team (Late st Contact Info) Description 11/04/2015 [facility] Outpatient Visit [facility] [address] [place] [address] [place] [address] [address] [place] [address] Social History Tobacco Use Types Packs/Day Years Used Date Smoking Tobacco: Former Cigarettes Q uit: 07/03/2000 Smokeless Tobacco: Never Alcohol Use Standard Drinks/Week Comments No 0 (1 standard drink = 0.6 oz pur e alcohol) Comments Unknown Sex and Gender Information Value Date Recorded Sex Assigned at Not on file Legal Sex Female 2:23 PM OTHER SPORTS COACH OR INSTRUCTOR Gender Identity Not on file Sexual Orientation Not on file Occupation Industry Job Start Date Job End Date disability Not on file Not on file Not on file documented as of this encounter Plan of Treatment Not on file documented as of this encounter Visit Diagnoses Not on filedocumented in this encounter Care Teams Commercial Teller Relationship Specialty Start [place] [address] [address] [place] [address] Rheumatology 02/03/16 Radha Orosco 12/30/16 12/30/16 Ry Martinez MD Orthopedic Surgery 02/03/17 Phani Gómez MD [address] [facility] [address] [place] [address] Surgery 06/27/17 documented as of this encounter
--- OUTSIDE RECORDS SUMMARY | 2025-06-04 07:51 | XMS_ITS | Encounter Summary ---
Author Organization [facility] Health Address [address] [place] [address] Care Team Providers Care Entry Clerk Name Role Phone Brittany Weston MD Unavailable Radha Orosco Unavailable Unavailable Ry Martinez MD Unavailable Phani Gómez MD Unavailable Encounter Details Date Type Department Care Team (Late st Contact Info) Description 09/11/2015 [facility] Outpatient Visit [facility] [address] [place] [address] Unknown, Provider Social History Tobacco Use Types Packs/Day Years Used Date Smoking Tobacco: Never Assessed Comments Unknown Sex and Gender Information Value Date Recorded Sex Assigned at Not on file Legal Sex Female 2:23 PM SENIOR COMMERCIAL LOAN OFFICER Gender Identity Not on file Sexual Orientation Not on file documented as of this encounter Plan of Treatment Not on file documented as of this encounter Visit Diagnoses Not on filedocumented in this encounter Care Teams Entry Clerk Relationship Specialty [place] [address] [phone] Rheumatology 02/03/16 Radha Orosco 12/30/16 12/30/16 Ry Martinez MD Orthopedic Surgery 02/03/17 Phani Gómez MD [address] [address] Surgery 06/27/17 documented as of this encounter
--- OUTSIDE RECORDS SUMMARY | 2025-06-04 07:51 | XMS_ITS | Encounter Summary ---
Author Organization [facility] Health Address [address] [place] [address] Care Team Providers Care Presiding Judge Name Role Phone Brittany Weston MD Unavailable Radha Orosco Unavailable Unavailable Ry Martinez MD Unavailable Phani Gómez MD Unavailable [phone] Encounter Details Date Type Department Care Team (Late st Contact Info) Description 11/26/2015 [facility] Outpatient Visit [facility] [address] [place] [address] [place] [address] [address] [place] [address] Social History Tobacco Use Types Packs/Day Years Used Date Smoking Tobacco: Former Cigarettes Q uit: 07/03/2000 Smokeless Tobacco: Never Alcohol Use Standard Drinks/Week Comments No 0 (1 standard drink = 0.6 oz pur e alcohol) Comments Unknown Sex and Gender Information Value Date Recorded Sex Assigned at Not on file Legal Sex Female 2:23 PM ON AIR PERSONALITY Gender Identity Not on file Sexual Orientation Not on file Occupation Industry Job Start Date Job End Date disability Not on file Not on file Not on file documented as of this encounter Plan of Treatment Not on file documented as of this encounter Visit Diagnoses Not on filedocumented in this encounter Care Teams Presiding Judge Relationship Specialty Start [place] [address] [address] [place] [address] Rheumatology 02/03/16 Radha Orosco 12/30/16 12/30/16 Ry Martinez MD Orthopedic Surgery 02/03/17 Phani Gómez MD [address] [facility] [address] [place] [address] Surgery 06/27/17 documented as of this encounter
[2025-06-04 09:11] LABS: Alanine Aminotransferase 14 U/L (6-35); Albumin Level 3.9 g/dL (3.5-5.1); Alkaline Phosphatase 118 U/L (38-126); Anion Gap 7 mmol/L (4-12); Aspartate Amino Transferase 31 U/L (14-36); Bilirubin,Total 0.8 mg/dL (0.2-1.3); Blood Urea Nitrogen 16 mg/dL (7-17); Calcium 8.7 mg/dL (8.4-10.2); Carbon Dioxide 29 mmol/L (22-30); Chloride 100 mmol/L (98-107); Cholesterol 126 mg/dL (0-200); Estimated Glomerular Filt Rate > 60; Glucose 102 mg/dL (65-110); HDL Direct 49 mg/dL; Potassium 3.7 mmol/L (3.4-5.0); Sodium 136 mmol/L (137-145); Total Protein 7.0 g/dL (6.3-8.2); Triglycerides 62 mg/dL (<150)
[2025-06-04 09:20] LABS: Hemoglobin A1C 5.5 % (<5.7)
== END 2025-06-04 07:48 | disposition home or self-care (01) ==
LOC: ANHLAB 07:48
PROVIDERS: PCP Family Medicine Adolescent Medicine; Referring Provider Anesthesiology; Visit Provider Family Medicine Adolescent Medicine
DX: R73.01 Impaired fasting glucose (principal); I10 Essential (primary) hypertension; E78.00 Pure hypercholesterolemia, unspecified
CPT/HCPCS: 36415; 80053; 80061; 83036

== ENCOUNTER 2025-06-12 00:52 | Day surgery (SDC) | payer MEDICARE, MEDICAID, SELFPAY ==
[2025-05-28 15:35] VITALS: BMI 50.1
--- NOTE | 2025-05-28 15:44 | PC.NURSE ---
Report to the Outpatient Waiting Room, entrance under the green pavilion located off [facility], at time ____0715am___ on date __06/12/25 . Planned Procedure Time: _0915am .? Time changes happen often and if your time is changed the preop area will call you the afternoon before. - You and your visitor will be asked to self-screen and do not enter if you have any COVID symptoms. Please call surgeon if you need to reschedule. - A mask is optional within the hospital at this time. Patients may have No food or drink from midnight until time of surgery and no smoking, or chewing tobacco (or any form of nicotine). No chewing gum, candy or mints. Take only the following medications with a SIP of water on the morning of surgery: __Pramipexole, Chlordiazepoxide, and tramadol if needed DO NOT STOP ANY OF YOUR OTHER PRESCRIPTION MEDICATIONS PRIOR TO SURGERY EXCEPT THE FOLLOWING Hold all vitamins and supplements for 3 days per anesthesiologist. Date of last dose 06/08/25 Medications to discontinue per physician NONE Date to take last dose NONE Please no make-up, nail slovak, hairspray, perfume, deodorant, or body powder the day of surgery.? No jewelry (including any body piercings) or valuables the day of surgery, leave them at home.? Please take a shower or bath the night before, or the morning of, surgery with an antibacterial soap.? Wear comfortable, loose fitting clothing.? - Jewelry must be removed prior to entering the operating room.? Rings and piercings that are not removed may be cut off. - The hospital will not accept responsibility for valuables.? - Please leave all valuables, including medications, at home the day of surgery. If you are going home after surgery, a licensed solid waste truck driver must drive you home.? - NO public transportation without another adult if you receive anesthesia. - We recommend that an adult stay with you for 24 hours following discharge. - We also recommend that you do not drive, make important decision, drink alcoholic beverages, or take any drugs that were not prescribed by your health care provider for at least 24 hours after your discharge time. Follow any additional instructions given to you from your surgeon. Telephone instructions given to ___Patient and asked if any additional questions and then verbalized understanding. Patient advised to call surgeon office or pre surgery nurse liaison [phone] if any additional questions.
--- NOTE | 2025-06-12 06:40 | WPDHPUPDATE1 ---
History and Physical Update Update Date/Time: 06/12/25 06:40 Patient seen and examined in pre-operative holding area. No interval change in medical history or symptoms. Patient recalls previous discussion of benefits and alternatives to procedure. Continues to desire to proceed with right endoscopic possible open carpal tunnel release and right cubital tunnel release. Reviewed procedure, post-op expectations and risks including but not limited to bleeding, infection, injury to tendon/nerve/vessel, decreased hand function, stiffness, RSD, no change or worsening of symptoms. I discussed the possible use of assistants and their participation in the case. Patient stated understanding and signed the consent form wishing to proceed.
--- NOTE | 2025-06-12 06:41 | W.PM.PROC2 ---
Procedure Note - Detailed Date of Procedure 06/12/25 Pre-op Diagnosis rt carpal & cubital tunnel syn Post-op Diagnosis Same Procedure Performed right ectr and CuTR Surgeon Wilver Armas MD Anesthesia MAC Description of Procedure INFORMED CONSENT: The patient was seen and examined and marked in the pre-op area.? The patient signed the consent form. PROCEDURE IN DETAIL:The patient taken back to OR on the stretcher in supine position. Time out performed with anesthesia, surgeon and staff agreeing on patient's name site and surgery to be performed SCDs were placed on the lower extremities and inflated. A tourniquet was placed on {right} upper extremity and antibiotics given IV After anesthesia administered sedation I injected {10}cc 1%lido with epi and 0.5% marcaine plain at the operative sites The?{right upper extremity}?was prepped and draped in sterile fashion the??{right upper extremity} was? exsanguinated with Esmarch bandage and tourniquet inflated to 250mmHg I made a transverse incision in the {right} volar distal wrist crease through skin and dermis with 15 blade scalpel.? Littler scissors spread down to antebrachial fascia. A small incision was made in antebrachial fascia allowing access to Carpal tunnel. I proceeded with sequential dilation staying in line with the ring finger and hugging the hook of the hamate.? I then used the synovial elevator to free any adhesions from the underside of the transverse carpal ligament. Next I was able to insert the Microaire endoscopic carpal tunnel device with direct visualization of the transverse fibers on the monitor and proceeded with complete segmental retrograde release of the ligament in its entirety.? I irrigated with normal saline and closed with 4-0 monocryl for dermis and subcuticular closure. I next proceeded with making a longitudinal incision between two heads for flexor carpi ulnaris at end of {right} cubital tunnel with 15 blade scalpel.? Littler scissors were used to spread down to FCU fascia.? An incision was made in FCU fascia and ulnar nerve identified exiting cubital tunnel.? I proceeded with complete retrograde release of the cubital tunnel including 7cm proximal for the intermuscular septum.? The nerve appeared healthy with visible vaso nervorum.? There was no subluxation on full elbow range of motion. ? I irrigated with normal saline and closure with 4-0 monocryl for dermis and subcuticular. The incisions were covered with Dermabond then 4x4s, miguel, and a posterior elbow and volar wrist splint was applied for patient safety, security and comfort and secured with josé bandages after the tourniquet was let down noting the hand was warm and well perfused.? Patient awaken from anesthesia and transferred to recovery in stable condition Complications - none EBL- 1cc Disposition - home in stable condition [facility] Billing Surgery - Charge Forward: Surgery Billing ([id number])
--- NOTE | 2025-06-12 06:47 | P.PNAN_ITS ---
Anes - Initial Pre Proc Eval Procedure: Operation Date: 06/12/25 08:15 Proposed Procedures p Right Endoscopic Carpal Tunnel Release, Possible Open, Right Cubital Tunnel Release - Wilver Armas MD Date/Time: 06/12/25 06:47 Surgeon: Wilver Arams MD Pre Op Diagnosis: rt carpal & cubital tunnel syn Patient Data Age: 64 Gender: F Height: 1.55 m Weight: 120.2 kg Allergies Allergy/AdvReac Type Severity Reaction Status Date / Time trazodone Allergy Swelling, Verified 05/28/25 15:23 ACHES duloxetine AdvReac Severe Confusion Verified 05/28/25 15:23 gabapentin AdvReac Mild sleep walk Verified 05/28/25 15:23 Contrast Media Allergy Intermediate RASH Uncoded 05/28/25 15:23 Home Medications ?Medication ?Instructions ?Recorded ?Confirmed ?Type atorvastatin 20 mg tablet 20 mg PO DAILY 02/28/24 08/03/27 History hydrochlorothiazide 25 mg tablet 25 mg PO DAILY #90 ta bs 12/14/24 05/28/25 Rx oxybutynin chloride 15 mg See Rx Instructions .Route 0 12/14/24 05/28/25 Rx tablet,extended release 24 hr .COMPLEX #90 tabs chlordiazepoxide HCl 10 mg capsule 10 mg PO Q12H PRN a nxiety #20 caps 01/08/25 05/28/25 Rx hydrocodone 5 mg-acetaminophen 325 1 tablet PO QID PRN Pain #30 tabs 01/08/25 05/28/25 Rx mg tablet tramadol 50 mg tablet 50 mg PO Q6H PRN pain #120 t abs 01/08/25 05/28/25 Rx pantoprazole 40 mg tablet,delayed 40 mg PO BID PRN hea rtburn #180 04/07/25 05/28/25 Rx release tabs pramipexole 1 mg tablet See Rx Instructions .Route 0 04/27/25 05/28/25 Rx .COMPLEX #270 tabs herbal drugs 1 tablet PO DAILY 05/28/25 0 05/28/25 History lisinopril 20 mg tablet See Rx Instructions .Route . COMPLEX 05/28/25 05/28/25 History Patient hx anesthesia problems: none Family hx anesthesia problems: none Results Review: All pre-operative results and documents have been reviewed as part of the pre- operative evaluation. [facility] Past Medical History Medical History (Updated 06/11/25 @ 11:37 by Adolph Graham DO) Fibromyalgia Obstructive sleep apnea (adult) (pediatric) Rheumatoid arthritis Essential (primary) hypertension Left carpal tunnel syndrome Abnormal colonoscopy 09/20/19 3 polyps Surgical History Surgical History (Updated 06/11/25 @ 11:37 by Adolph Graham DO) History of tubal ligation History of section History of bariatric surgery Gastric Sleeve 2017 History of cholecystectomy 2018 History of appendectomy Family History Family History Father Acute myocardial infarction Cerebrovascular accident Heart disease Hypertension Sibling Asthma Depression Hypertension Mother Carcinoma of colon Sibling Depression Daughter Depression Son Depression Other Colon polyp Social History Social History Smoking packs per day: 0.5 Smoking cigarettes per day: 10.0 Years smoked: 20 Smoking pack-years: 10.00 Smoking status: Former smoker Tobacco type: cigarettes Second hand tobacco smoke exposure: No Smoking end date: 10/03/99 Additional smoking assessment comments: STOPPED IN 1999 Alcohol intake: never Substance use: never Substance use type: does not use Living arrangements: with family Occupation/Education: other Gender identity (if verbalized by the patient): Female Sexual Orientation (if Verbalized by the Patient): Straight or Heterosexual Spiritual care concerns: No Agree to blood products: Yes Anes - Eval Final PreProcedure Day of Procedure 06/12/25 06:47 Patient weight: super morbidly obese Heart: regular rate and rhythm Lungs: clear to auscultation Airway: Mallampati scale class II and special considerations poor dentition Neurological: alert and oriented Last oral intake: >/= 8 hours ASA classification: III Emergent: no Anesthetic plan: proceed Anesthesia type and monitoring: general GIVS and standard monitoring Results Review: All pre-operative results and documents have been reviewed as part of the pre- operative evaluation. Informed Consent: The patient's anesthetic plan and its attendant risks and benefits were discussed with the patient/family/POA. Questions were solicited and answers provided to the satisfaction of the patient/family/POA.
[2025-06-12] MEDS: ACETAMINOPHEN 500 MG TABLET 1000 MG PO (07:00)
[2025-06-12 07:25] VITALS: BP 166/96; PULSE 65; TEMP 36.9; O2SAT 97; BMI 51.2
[2025-06-12] MEDS: LACTATED RINGERS 1,000 ML 30 ML IV CONT (07:31)
[2025-06-12] MEDS: FAMOTIDINE 20 MG/2 ML VIAL IV PUSH (07:48)
[2025-06-12] MEDS: ceFAZolin 3 GM/D5W 100 ML 100 ML IVPB (08:09)
[2025-06-12] MEDS: BUPivacaine HCL 0.5% 10 ML AMP 5 ML INFILTRATE (08:14)
[2025-06-12] MEDS: LIDO 1%/EPINEPHRINE 1:100,000 50 ML VIAL INFILTRATE (08:18)
[2025-06-12 08:47] VITALS: BP 125/63; PULSE 60; RESP 14; O2SAT 99
[2025-06-12 09:17] VITALS: BP 166/65; PULSE 52
[2025-06-12 09:41] VITALS: BP 154/66; PULSE 54
== END 2025-06-12 10:05 | disposition home or self-care (01) ==
PROVIDERS: PCP Family Medicine Adolescent Medicine; Visit Provider Plastic Surgery
PROC: 01N54ZZ Release Median Nerve, Percutaneous Endoscopic Approach (ICD-10-PCS; CPT 29848; principal; 2025-06-12 08:15)
DX: G56.02 Carpal tunnel syndrome, left upper limb (principal); G56.22 Lesion of ulnar nerve, left upper limb; I10 Essential (primary) hypertension; M79.7 Fibromyalgia; G47.33 Obstructive sleep apnea (adult) (pediatric); M06.9 Rheumatoid arthritis, unspecified; E66.01 Morbid (severe) obesity due to excess calories; Z68.43 Body mass index [BMI] 50.0-59.9, adult; Z79.891 Long term (current) use of opiate analgesic; Z79.899 Other long term (current) drug therapy; Z98.890 Other specified postprocedural states; Z98.51 Tubal ligation status; Z98.84 Bariatric surgery status; Z90.49 Acquired absence of other specified parts of digestive tract; Z87.891 Personal history of nicotine dependence; Z86.0100 Personal history of colon polyps, unspecified; Z83.719 Family history of colon polyps, unspecified; Z80.0 Family history of malignant neoplasm of digestive organs; Z82.49 Family history of ischemic heart disease and other diseases of the circulatory system
CPT/HCPCS: 64718; 29848; A9270; J0690; J1100; J2003; J2004; J2405; J2704; J3010; J7120

== ENCOUNTER 2025-08-05 08:40 | Outpatient (CLI) | payer MEDICARE, MEDICAID, SELFPAY ==
--- NOTE | ~2025-08-05 | XR_ITS ---
EXAMINATION: XR wrist RT min 3V, 08/05/2025 9:00 ARTILLERY OR NAVAL GUNFIRE OBSERVER HISTORY: w/ carpal tunnel view, FELL COMPARISON: No comparisons available. Findings: No acute fracture or malalignment. No significant degenerative changes. Soft tissues unremarkable. Impression: No acute fracture or malalignment. Reviewed, dictated and finalized at location P. LLERY OR [employer]AL [employer] OBSERVER Impression: No acute fracture or malalignment.
--- OUTSIDE RECORDS SUMMARY | 2025-08-05 09:03 | XMS_ITS | Encounter Summary ---
Author Organization [facility] Health Address [address] [place] [address] Care Team Providers Care District Sales Representative Name Role Phone Brittany Weston MD Unavailable Radha Orosco Unavailable Unavailable Ry Martinez MD Unavailable Phani Gómez MD Unavailable [phone] Encounter Details Date Type Department Care Team (Late st Contact Info) Description 11/26/2015 [facility] Outpatient Visit [facility] [address] [place] [address] [place] [address] [place] [address] Social History Tobacco Use Types Packs/Day Years Used Date Smoking Tobacco: Former Cigarettes Q uit: 07/03/2000 Smokeless Tobacco: Never Alcohol Use Standard Drinks/Week Comments No 0 (1 standard drink = 0.6 oz pur e alcohol) Comments Unknown Sex and Gender Information Value Date Recorded Sex Assigned at Not on file Legal Sex Female 2:23 PM MANAGER COMPLETIONS Gender Identity Not on file Sexual Orientation Not on file Occupation Industry Job Start Date Job End Date disability Not on file Not on file Not on file documented as of this encounter Plan of Treatment Not on file documented as of this encounter Visit Diagnoses Not on filedocumented in this encounter Care Teams District Sales Representative Relationship Specialty Start [place] [address] [place] [address] Rheumatology 02/03/16 Radha Orosco 12/30/16 12/30/16 Ry Martinez MD Orthopedic Surgery 02/03/17 Phani Gómez MD [address] [facility] [address] [place] [address] Surgery 06/27/17 documented as of this encounter
--- OUTSIDE RECORDS SUMMARY | 2025-08-05 09:03 | XMS_ITS | Encounter Summary ---
Author Organization [facility] Health Address [address] [place] [address] Care Team Providers Care Building Construction Supervisor Name Role Phone Brittany Weston MD Unavailable Radha Orosco Unavailable Unavailable Ry Martinez MD Unavailable Phani Gómez MD Unavailable Encounter Details Date Type Department Care Team (Late st Contact Info) Description 09/11/2015 [facility] Outpatient Visit [facility] [address] [place] [address] Unknown, Provider Social History Tobacco Use Types Packs/Day Years Used Date Smoking Tobacco: Never Assessed Comments Unknown Sex and Gender Information Value Date Recorded Sex Assigned at Not on file Legal Sex Female 2:23 PM QUALITY TECH Gender Identity Not on file Sexual Orientation Not on file documented as of this encounter Plan of Treatment Not on file documented as of this encounter Visit Diagnoses Not on filedocumented in this encounter Care Teams Building Construction Supervisor Relationship Specialty Start [place] [id number] [id number] Rheumatology 02/03/16 Radha Orosco 12/30/16 12/30/16 Ry Martinez MD Orthopedic Surgery 02/03/17 Phani Gómez MD [address] [address] Surgery 06/27/17 documented as of this encounter
--- OUTSIDE RECORDS SUMMARY | 2025-08-05 09:03 | XMS_ITS | Encounter Summary ---
Author Organization [facility] Health Address [address] [place] [address] Care Team Providers Care Health Services Information Specialist Name Role Phone Brittany Weston MD Unavailable Radha Orosco Unavailable Unavailable Ry Martinez MD Unavailable Phani Gómez MD Unavailable [phone] Encounter Details Date Type Department Care Team (Late st Contact Info) Description 11/04/2015 [facility] Outpatient Visit [facility] [address] [place] [address] [place] [address] [address] [place] [address] Social History Tobacco Use Types Packs/Day Years Used Date Smoking Tobacco: Former Cigarettes Q uit: 07/03/2000 Smokeless Tobacco: Never Alcohol Use Standard Drinks/Week Comments No 0 (1 standard drink = 0.6 oz pur e alcohol) Comments Unknown Sex and Gender Information Value Date Recorded Sex Assigned at Not on file Legal Sex Female 2:23 PM RADIOLOGY PHYSICIAN Gender Identity Not on file Sexual Orientation Not on file Occupation Industry Job Start Date Job End Date disability Not on file Not on file Not on file documented as of this encounter Plan of Treatment Not on file documented as of this encounter Visit Diagnoses Not on filedocumented in this encounter Care Teams Health Services Information Specialist Relationship Specialty Start [place] [address] [address] [place] [address] Rheumatology 02/03/16 Radha Orosco 12/30/16 12/30/16 Ry Martinez MD Orthopedic Surgery 02/03/17 Phani Gómez MD [address] [facility] [address] [place] [address] Surgery 06/27/17 documented as of this encounter
--- OUTSIDE RECORDS SUMMARY | 2025-08-05 09:03 | XMS_ITS | Clinical Summary ---
Author Organization [facility] Address [address] [facility] [place] [address] Care Team Providers Care Operations Boardman Name Role Phone Brittany Weston MD Unavailable Ry Martinez MD Unavailable Phani Gómez MD Unavailable [phone] [facility],non-owned Affiliates and Associated Physician Practices is amultiple site organization consisting of ambulatory clinics and hospital sitesin [place], [place], [place] and [place]. This disclosure is being madepursuant to the Care Everywhere program and may not contain all information available regarding this patient. Last updated 18.[facility] Allergies Active Allergy Reactions Criticality Noted Date [...] file Legal Sex Female 2:23 PM QUALITY CONTROL ENGINEER Gender Identity Not on file Sexual Orientation [...] 11/09/2021 9, 03/02/2018, 12/30/2016, Additional history exists DEPRESSION SCREENING 10/03/2024 COVID-19 VACCINE ( - season) 2025 INFLUENZA VACCINE (#1) 2025 Respiratory Syncytial Virus [...] COMPREHENSIVE METABOLIC PANEL Routine 11/09/2018 2:55 PM QUALITY CONTROL ENGINEER Fibromyalgia HEPATITIS SCREEN ACUTE Routine 6 11:47 AM QUALITY CONTROL ENGINEER Malaise and fatigue from Last 3 Months or Most Recently Relevant to Health Maintenance Results * (ABNORMAL) COMPREHENSIVE METABOLIC PANEL (11/09/2018 2:55 PM QUALITY CONTROL ENGINEER) Glucose 87 74 - 106 mg/dL [facility] [...] BLOOD SPECIMEN / Unknown 11/09/2018 2:55 PM QUALITY CONTROL ENGINEER 11/09/2018 Narrative Resulting Agency Comment [facility] Health [facility] [address] [place] [id number] us Brittany Weston MD LAB - CHEMISTRY ORDERABLES Final Result [facility] ACCOUNT BILL [address] [place] [address] * HEPATITIS SCREEN ACUTE (11/04/2015 11:47 AM QUALITY CONTROL ENGINEER) Hepatitis A Virus Antibody IgM Non Reactive [...] BLOOD SPECIMEN / Unknown 11/04/2015 11:47 AM QUALITY CONTROL ENGINEER 11/04/2015 3:44 PM QUALITY CONTROL ENGINEER Narrative Resulting Agency Comment [facility] Lab [address] [facility] [phone] Brittany Weston MD LAB - CHEMISTRY ORDERABLES Final Result [facility] INSURANCE BILL [address] [place] [address] from Last 3 Months or Most Recently Relevant to Health Maintenance Insurance [facility] Care Teams Operations Boardman Relationship Specialty [place] [address] [address] [place] [address] Rheumatology 02/03/16 [place] [address] [place] [address] Orthopedic Surgery 02/03/17 Phani Gómez MD [address] [facility] [address] [place] [address] Surgery 06/27/17
--- OUTSIDE RECORDS SUMMARY | 2025-08-05 09:03 | XMS_ITS | Clinical Summary ---
Author Organization [facility] Address [address] [place] [address] Care Team Providers Care Hot Car Charger Name Role Phone Negrito Andrade MD Primary Care Prov ider Janak Jaime [employer] Unavailable [phone] Allergies Active Allergy Reactions Criticality Noted Date [...] (01/27/2022): Added automatically from request for surgery [id number] Eating disorder, unspecified 01/26/2022 Bariatric surgery status [...] Diagnosed Date Resolved Date BMI 50.0-59.9, adult 07/06/2017 019 Encounters Date Type Department Care Team Description 08/02/2025 12:53 PM CDT - 08/02/2025 11:59 PM CDT Hospital Encounter [facility] [address] [place] [address] Pain in right foot Discharge Disposition: Discharge to home or self care from Last 3 Months Surgical History Surgery Date Site/Laterality Comments APPENDECTOMY [...] on file Legal Sex Female 1:55 AM RESEARCH PROJECT COORDINATOR Gender Identity Not on file Sexual Orientation Not on file Obstetrics History Para Term AB IAB SAB Ectopic Multiple Livin g Live Births 3 2 2 Date Outcome GA Total Labor Labor/2nd/3rd Weight Sex Type Anes PTL Almita A1 A5 Name Clin Term Term Last Filed Vital Signs Vital Sign Reading Time Taken Comments Blood Pressure 157/73 11/09/2024 2:17 AM RESEARCH PROJECT COORDINATOR Pulse 63 11/09/2024 2:17 AM RESEARCH PROJECT COORDINATOR Temperature 36.4 C (97.6 F) 11/09/2024 2:17 AM RESEARCH PROJECT COORDINATOR Respiratory Rate 18 11/08/2024 7:18 PM RESEARCH PROJECT COORDINATOR Oxygen Saturation 96% 11/09/2024 1:45 AM RESEARCH PROJECT COORDINATOR Inhaled Oxygen Concentration - - Weight 117.9 kg (260 lb) 11/08/2024 7:18 PM RESEARCH PROJECT COORDINATOR Height 162.6 cm (5' 4) 11/08/2024 7:18 PM RESEARCH PROJECT COORDINATOR Body Mass Index 44.63 11/08/2024 7:18 PM RESEARCH PROJECT COORDINATOR Plan of Treatment Health Maintenance Due Date Last Done Comments Cervical Cancer Screening 1959 Colon Cancer Screening-Colonoscopy 1959 Depression Screening 1959 Osteoporosis Screening-Bone Density Scan 1959 Pneumococcal vaccine 65+ (1 of 1 - PCV) 12/10/2009 Zoster Vaccine (1 of 2) 12/10/2009 Breast Cancer Screening-Mammogram 06/14/2020 019 Fall Risk Assessment 04/15/2024 04/15/2023 Well Visit 65+ 12/10/2024 Influenza Vaccine (#1) 2025 DTaP/Tdap/Td Vaccine (2 - Td or Tdap) 03/18/2033 Hepatitis B Screening Completed 01/31/2023 Hepatitis C Screening Completed 01/31/2023, 013 Procedures Procedure Name Priority Date/Time Associated Diagnosis Comments XR FOOT RIGHT 2 VIEWS Schedule Routine, Read Routine (OP Routine) 08/02/2025 1:13 PM CDT Pain in right foot HEPATITIS PANEL, ACUTE Routine 01/31/2023 7:50 AM CDT Morbid obesity (HCC) Primary hypertension Gastroesophageal reflux disease with esophagitis without hemorrhage Postsurgical malabsorption BMI 50.0-59.9, adult (HCC) Bariatric surgery status H/O gastric sleeve Malabsorption due to intolerance, not elsewhere classified High risk medications (not anticoagulants) long-term use SCREENING MAMMOGRAM BILATERAL W EZRA Schedule Routine, Read Routine (OP Routine) 06/14/2019 9:26 AM CDT Encounter for screening mammogram for malignant neoplasm of breast from Last 3 Months or Most Recently Relevant to Health Maintenance Results * XR Foot Right 2 Views (08/02/2025 1:13 PM CDT) Anatomical Region Laterality Modality Lower Extremities, Foot Right Computed Radiography 08/02/2025 1:23 PM CDT Impressions 08/02/2025 1:23 PM CDT 1. No acute radiographic abnormality. 2. Mild to moderate right foot degenerative change as described. Electronically signed by: Allen Starkey M.D. Narrative 08/02/2025 1:23 PM CDT EXAM DESCRIPTION: XR FOOT RIGHT 2 VIEWS REASON FOR STUDY: Right foot pain after fall 1.5 weeks ago. TECHNIQUE: Two views of the right foot COMPARISON: Right foot radiographs 04/21/2015 FINDINGS: BONES/JOINTS: No acute fracture or dislocation. Mild to moderate diffuse interphalangeal joint osteoarthritis. Mild midfoot osteoarthritis. Small 6 mm plantar surface calcaneal spur. Minimal osteoarthritis of the 1st metatarsophalangeal joint. SOFT TISSUES: Within normal limits. Procedure Note Allen Starkey MD - 08/02/2025 EXAM DESCRIPTION: XR FOOT RIGHT 2 VIEWS REASON FOR STUDY: Right foot pain after fall 1.5 weeks ago. TECHNIQUE: Two views of the right foot COMPARISON: Right foot radiographs 04/21/2015 FINDINGS: BONES/JOINTS: No acute fracture or dislocation. Mild to moderate diffuse interphalangeal joint osteoarthritis. Mild midfoot osteoarthritis. Small 6 mm plantar surface calcaneal spur. Minimal osteoarthritis of the 1st metatarsophalangeal joint. SOFT TISSUES: Within normal limits. IMPRESSION: 1. No acute radiographic abnormality. 2. Mild to moderate right foot degenerative change as described. Electronically signed by: Allen Starkey M.D. Negrito Andrade MD IMG XR PROCEDURES Final Result * Hepatitis panel, acute (01/31/2023 7:50 AM CDT) Hep A IgM Nonreactive Nonreactive JOÃO RODRIGUEZ (ALEJANDRO) Comment: Interpretive Data: If Hep A IgM Ab is reported as Equivocal, a new sample should be drawn in two weeks for testing. Current interpretive data was last revised on 19. Testing performed by: [address] [address] Hep B core IgM Nonreactive Nonreactive C REMIGIOER MICHAEL (ALEJANDRO) Comment: Interpretive Data If HepB Core IgM Ab is reported as Equivocal, a new sample should be drawn in two weeks for testing. Current interpretive data was last revised on 19. Testing performed by: [facility], [address] [place] [address]., [id number] Hep C Ab Nonreactive Nonreactive JOÃO RODRIGUEZ [...] last revised on 2019. Testing performed by: [facility], [address] [place] [address]., [address] HepBsAg Nonreactive Nonreactive JOÃO RODRIGUEZ (ALEJANDRO) Comment:Testing performed by : [address] [address] Blood 01/31/2023 7:50 AM CDT 01/31/2023 2:28 PM CDT us Denise Bennett MD LAB MICROBIOLOGY - GENER AL ORDERABLES Final Result EMETERIOMATTIE RODRIGUEZ (ALEJANDRO) [address] [facility] [place] [address] * Screening Mammogram Bilateral W Ezra (06/14/2019 9:26 AM CDT) Anatomical Region Laterality Modality Breast Bilateral Mammography 06/14/2019 9:27 AM CDT Impressions 06/14/2019 9:30 AM CDT 1. NO DEFINITIVE MAMMOGRAPHIC EVIDENCE OF MALIGNANCY 2. ANNUAL FOLLOW-UP RECOMMENDED BI-RADS 1 Electronically signed by: Emiliano Parikh M.D. Narrative 06/14/2019 9:30 AM CDT SCREENING MAMMOGRAM BILATERAL W EZRA HISTORY: Encounter for screening mammogram for malignant neoplasm of breast TECHNIQUE: 2 views of each breast were obtained with bilateral breast tomosynthesis. COMPARISON: Baseline exam FINDINGS: The breasts are composed of scattered fibroglandular densities. No suspicious mass or calcification is seen to suggest mammographic evidence of malignancy. Digital technology was employed plus computer aided detection software (R2) was utilized in interpretation of these images. This facility utilizes a reminder system to notify patient's of yearly mammograms. us Self Screening Mammogram IMG MAMMO PROCEDURES Fi nal Result from Last 3 Months or Most Recently Relevant to Health Maintenance Insurance [employer] MEDICARE GOLD [facility] AET[employer] MEDICARE GOLD Advance Directives For more information, please contact: [phone] * Full Code (Latest Code Status on File) Date Activated Date Inactivated Comments 04/14/2023 10:59 AM 04/15/2023 10:08 PM Care Teams Hot Car Charger Relationship Specialty Start Date End Date Negrito Andrade MD PCP - General 11/18/16 Janak Jaime NP [phone] [place] [address] Nurse Practitioner General Surgery 04/15/23
--- OUTSIDE RECORDS SUMMARY | 2025-08-05 09:03 | XMS_ITS | Clinical Summary ---
Author Organization [facility] Care Team Providers Care Production Intern Name Role Phone Negrito Andrade MD Primary [...] tablet by mouth twice daily Active ergocalciferol 44388 UNIT PO CAPS Take by mouth. Take [...] Comments Blood Pressure 95/63 09/20/2019 11:08 AM DIET THERAPIST Pulse 73 09/20/2019 11:08 AM DIET THERAPIST Temperature 36 C (96.8 F) 09/20/2019 11:08 AM DIET THERAPIST Respiratory Rate 16 09/20/2019 11:08 AM DIET THERAPIST Oxygen Saturation 97% 09/20/2019 11:08 AM DIET THERAPIST Inhaled Oxygen Concentration - - Weight 113.4 kg (250 lb) 08/10/2019 11:00 AM DIET THERAPIST Height 154.9 cm (5' 1) 08/10/2019 11:00 AM DIET THERAPIST Body Mass Index 47.24 08/10/2019 11:00 AM DIET THERAPIST Plan of Treatment Health Maintenance Due Date [...] Virus (RSV) Immunization (Adult) (1 - Risk 50-74 years 1-dose series) 12/10/2009 Medicare Initial AWV [id number] 07/03/2014 Colonoscopy 09/20/2024 09/20/2019 Colorectal Cancer Screening 09/20/2024 [...] topic Insurance MEDICARE C HU[employer] Care Teams Production Intern Relationship Specialty Start Date End Date Negrito Andrade MD PCP - General Family Medicine 11/16/15
== END 2025-08-05 08:41 | disposition home or self-care (01) ==
PROVIDERS: PCP Family Medicine Adolescent Medicine; Visit Provider Physician Assistant Surgical
DX: M25.531 Pain in right wrist (principal)
CPT/HCPCS: 73110

== ENCOUNTER 2025-08-26 10:35 | Outpatient (CLI) | payer MEDICARE, MEDICAID, SELFPAY ==
--- NOTE | ~2025-08-26 | XR_ITS ---
EXAMINATION: XR wrist RT 2V, 08/26/2025 10:58 LEAD ENGINEER HISTORY: M25.531 - Pain in right wrist COMPARISON: No comparisons available. Findings: No acute fracture or malalignment. No significant degenerative changes. Soft tissues unremarkable. Impression: No acute fracture or malalignment. Reviewed, dictated and finalized at location P. ENGINEER Impression: No acute fracture or malalignment.
--- OUTSIDE RECORDS SUMMARY | 2025-08-26 12:35 | XMS_ITS | Encounter Summary ---
Author Organization [facility] Health Address [address] [place] [address] Care Team Providers Care School Administrator Name Role Phone Brittany Weston MD Unavailable Radha Orosco Unavailable Unavailable Ry Martinez MD Unavailable Phani Gómez MD Unavailable Encounter Details Date Type Department Care Team (Late st Contact Info) Description 11/26/2015 [facility] Outpatient Visit [facility] [address] [place] [address] [place] [address] [place] [address] Social History Tobacco Use Types Packs/Day Years Used Date Smoking Tobacco: Former Cigarettes 0 Q uit: 07/03/2000 Smokeless Tobacco: Never Alcohol Use Standard Drinks/Week Comments No 0 (1 standard drink = 0.6 oz pur e alcohol) Comments Unknown Sex and Gender Information Value Date Recorded Sex Assigned at Not on file Legal Sex Female 2:23 PM FIXED WING AIRCRAFT FLIGHT ENGINEER Gender Identity Not on file Sexual Orientation Not on file Occupation Industry Job Start Date Job End Date disability Not on file Not on file Not on file documented as of this encounter Plan of Treatment Not on file documented as of this encounter Visit Diagnoses Not on filedocumented in this encounter Care Teams School Administrator Relationship Specialty Start [place] [address] [place] [address] Rheumatology 02/03/16 Radha Orosco 12/30/16 12/30/16 Ry Martinez MD Orthopedic Surgery 02/03/17 Phani Gómez MD [address] [facility] [address] [place] [address] Surgery 06/27/17 documented as of this encounter
--- OUTSIDE RECORDS SUMMARY | 2025-08-26 12:35 | XMS_ITS | Clinical Summary ---
Author Organization [facility] Address [address] [place] [address] Care Team Providers Care Hand Spinner Name Role Phone Brittany Weston MD Unavailable Ry Martinez MD Unavailable Phani Gómez MD Unavailable [phone] Source Comments [facility],non-owned Affiliates and Associated Physician Practices is amultiple site organization consisting of ambulatory clinics and hospital sitesin [place], [place], [place] and [place]. This disclosure is being madepursuant to the Care Everywhere program and may not contain all information available regarding this patient. Last updated 18.[facility] Allergies Active Allergy Reactions Criticality Noted [...] on file Legal Sex Female 2:23 PM SPECIAL FORCES ENGINEER SERGEANT Gender Identity Not on file Sexual Orientation [...] 12/10/1974 DTAP/TDAP/TD VACCINES (1 - Tdap) 12/10/1978 PAP SMEAR 12/10/1980 Cervical Cancer Screening 12/10/1989 PAP with HPV 12/10/1989 PNEUMOCOCCAL VACCINE 50+ (1 of 1 - PCV) 12/10/2009 ZOSTER VACCINE (1 of 2) 12/10/2009 SCREENING FOR DIABETES 11/09/2021 9, 03/02/2018, 12/30/2016, Additional history exists DEPRESSION SCREENING 10/03/2024 COVID-19 VACCINE ( - 2024- season) 2025 INFLUENZA VACCINE (#1) 2025 Respiratory [...] COMPREHENSIVE METABOLIC PANEL Routine 11/09/2018 2:55 PM SPECIAL FORCES ENGINEER SERGEANT Fibromyalgia HEPATITIS SCREEN ACUTE Routine 6 11:47 AM SPECIAL FORCES ENGINEER SERGEANT Malaise and fatigue from Last 3 Months or Most Recently Relevant to Health Maintenance Results * (ABNORMAL) COMPREHENSIVE METABOLIC PANEL (11/09/2018 2:55 PM SPECIAL FORCES ENGINEER SERGEANT) Glucose 87 74 - 106 mg/dL [facility] [...] BLOOD SPECIMEN / Unknown 11/09/2018 2:55 PM SPECIAL FORCES ENGINEER SERGEANT 11/09/2018 Narrative Resulting Agency Comment [facility] [address] [place] [phone] us Brittany Weston MD LAB - CHEMISTRY ORDERABLES Final Result [facility] ACCOUNT BILL [address] [place] [address] * HEPATITIS SCREEN ACUTE (11/04/2015 11:47 AM SPECIAL FORCES ENGINEER SERGEANT) Hepatitis A Virus Antibody IgM Non Reactive [...] BLOOD SPECIMEN / Unknown 11/04/2015 11:47 AM SPECIAL FORCES ENGINEER SERGEANT 11/04/2015 3:44 PM SPECIAL FORCES ENGINEER SERGEANT Narrative Resulting Agency Comment [facility] [address] [facility] [phone] [place] Brittany Weston MD LAB - CHEMISTRY ORDERABLES Final Result [facility] INSURANCE BILL [address] [place] [address] from Last 3 Months or Most Recently Relevant to Health Maintenance Insurance [employer] Care Teams Hand Spinner Relationship Specialty [place] [address] [facility] [address] [address] Rheumatology 02/03/16 [place] [address] [place] [address] Orthopedic Surgery 02/03/17 Phani Gómez MD [address] [facility] 8 [place] [address] Surgery 06/27/17
--- OUTSIDE RECORDS SUMMARY | 2025-08-26 12:35 | XMS_ITS | Encounter Summary ---
Author Organization [facility] Health Address [address] [place] [address] Care Team Providers Care Design Transferrer Name Role Phone Brittany Weston MD Unavailable Radha Orosco Unavailable Unavailable Ry Martinez MD Unavailable Phani Gómez MD Unavailable [phone] Encounter Details Date Type Department Care Team (Late st Contact Info) Description 11/04/2015 [facility] Outpatient Visit [facility] [address] [place] [address] [place] [address] [place] [address] Social History Tobacco Use Types Packs/Day Years Used Date Smoking Tobacco: Former Cigarettes 0 Q uit: 07/03/2000 Smokeless Tobacco: Never Alcohol Use Standard Drinks/Week Comments No 0 (1 standard drink = 0.6 oz pur e alcohol) Comments Unknown Sex and Gender Information Value Date Recorded Sex Assigned at Not on file Legal Sex Female 2:23 PM BATCH MAKER Gender Identity Not on file Sexual Orientation Not on file Occupation Industry Job Start Date Job End Date disability Not on file Not on file Not on file documented as of this encounter Plan of Treatment Not on file documented as of this encounter Visit Diagnoses Not on filedocumented in this encounter Care Teams Design Transferrer Relationship Specialty Start [place] [address] [address] [place] [address] Rheumatology 02/03/16 Radha Orosco 12/30/16 12/30/16 Ry Martinez MD Orthopedic Surgery 02/03/17 Phani Gómez MD [address] [facility] 8 [place] [address] Surgery 06/27/17 documented as of this encounter
--- OUTSIDE RECORDS SUMMARY | 2025-08-26 12:35 | XMS_ITS | Clinical Summary ---
Author Organization [facility] Care Team Providers Care Bundle Cutter Name Role Phone Negrito Andrade MD Primary [...] tablet by mouth twice daily Active ergocalciferol 32827 UNIT PO CAPS Take by mouth. Take [...] Comments Blood Pressure 95/63 09/20/2019 11:08 AM TARGET WORKER Pulse 73 09/20/2019 11:08 AM TARGET WORKER Temperature 36 C (96.8 F) 09/20/2019 11:08 AM TARGET WORKER Respiratory Rate 16 09/20/2019 11:08 AM TARGET WORKER Oxygen Saturation 97% 09/20/2019 11:08 AM TARGET WORKER Inhaled Oxygen Concentration - - Weight 113.4 kg (250 lb) 08/10/2019 11:00 AM TARGET WORKER Height 154.9 cm (5' 1) 08/10/2019 11:00 AM TARGET WORKER Body Mass Index 47.24 08/10/2019 11:00 AM TARGET WORKER Plan of Treatment Health Maintenance Due Date Last Done Comments Hepatitis C Virus (HCV) Screening 1960 TdaP Immunization 1960 SARS-COV-2 Immunization (#1) 12/10/1964 Varicella Immunization (1 of 2 - 13+ 2-dose series) 12/10/1972 Zoster Immunization (1 of 2) 12/10/1978 Pap [...] topic Insurance MEDICARE C HUMANA Care Teams Bundle Cutter Relationship Specialty Start Date End Date Negrito Andrade MD PCP - General Family Medicine 11/16/15
--- OUTSIDE RECORDS SUMMARY | 2025-08-26 12:35 | XMS_ITS | Encounter Summary ---
Author Organization [facility] Health Address [address] [place] [address] Care Team Providers Care Mva Operator Name Role Phone Brittany Weston MD Unavailable Radha Orosco Unavailable Unavailable Ry Martinez MD Unavailable Phani Gómez MD Unavailable Encounter Details Date Type Department Care Team (Late st Contact Info) Description 09/11/2015 [facility] Outpatient Visit [facility] [address] [place] [address] Unknown, Provider Social History Tobacco Use Types Packs/Day Years Used Date Smoking Tobacco: Never Assessed Comments Unknown Sex and Gender Information Value Date Recorded Sex Assigned at Not on file Legal Sex Female 2:23 PM ENERGY CONSERVATION SPECIALIST Gender Identity Not on file Sexual Orientation Not on file documented as of this encounter Plan of Treatment Not on file documented as of this encounter Visit Diagnoses Not on filedocumented in this encounter Care Teams Mva Operator Relationship Specialty [place] [address] [id number] Rheumatology 02/03/16 Radha Orosco 12/30/16 12/30/16 Ry Martinez MD Orthopedic Surgery 02/03/17 Phani Gómez MD [address] [address] Surgery 06/27/17 documented as of this encounter
== END 2025-08-26 10:36 | disposition home or self-care (01) ==
PROVIDERS: PCP Family Medicine Adolescent Medicine; Visit Provider Physician Assistant Surgical
DX: M25.531 Pain in right wrist (principal)
CPT/HCPCS: 73100

== ENCOUNTER 2025-09-06 12:45 | Outpatient (CLI) | payer MEDICARE, MEDICAID, SELFPAY ==
--- NOTE | ~2025-09-06 | XR_ITS ---
EXAMINATION: XR foot RT min 3V, 09/06/2025 13:18 REDUCTION FURNACE OPERATOR HISTORY: M79.671 - Pain in right foot COMPARISON: No comparisons available. Findings: Remote corticated fractures with dorsal aspect of the navicular bone, no acute fracture is identified. Large calcaneal spur. Soft tissues unremarkable. Impression: No acute fracture or malalignment. Reviewed, dictated and finalized at location P. CTION FURNACE OPERATOR Impression: No acute fracture or malalignment.
--- OUTSIDE RECORDS SUMMARY | 2025-09-06 12:49 | XMS_ITS | Encounter Summary ---
Author Organization [facility] Health Address [address] [place] [address] Care Team Providers Care Doggy Daycare Activities Director Name Role Phone Brittany Weston MD Unavailable Radha Orosco Unavailable Unavailable Ry Martinez MD Unavailable Phani Gómez MD Unavailable [phone] Encounter Details Date Type Department Care Team (Late st Contact Info) Description 09/11/2015 [facility] Outpatient Visit [facility] [address] [place] [address] Unknown, Provider Social History Tobacco Use Types Packs/Day Years Used Date Smoking Tobacco: Never Assessed Comments Unknown Sex and Gender Information Value Date Recorded Sex Assigned at Not on file Legal Sex Female 2:23 PM NUTRITIONAL SERVICES DIRECTOR Gender Identity Not on file Sexual Orientation Not on file documented as of this encounter Plan of Treatment Not on file documented as of this encounter Visit Diagnoses Not on filedocumented in this encounter Care Teams Doggy Daycare Activities Director Relationship Specialty Start [place] [address] [phone] Rheumatology 02/03/16 Radha Orosco 12/30/16 12/30/16 Ry Martinez MD Orthopedic Surgery 02/03/17 Phani Gómez MD [address] [address] Surgery 06/27/17 documented as of this encounter
--- OUTSIDE RECORDS SUMMARY | 2025-09-06 12:49 | XMS_ITS | Clinical Summary ---
Author Organization [facility] Address [address] [facility] [place] [address] Care Team Providers Care Pad Machine Offbearer Name Role Phone Brittany Weston MD Unavailable Ry Martinez MD Unavailable Phani Gómez MD Unavailable [phone] Source Comments [facility],non-owned Affiliates and Associated Physician Practices is amultiple site organization consisting of ambulatory clinics and hospital sitesin [place], [place], [place] and [place]. This disclosure is being madepursuant to the Care Everywhere program and may not contain all information available regarding this patient. Last updated 18.[facility] Allergies Active Allergy Reactions Criticality Noted Date [...] on file Legal Sex Female 2:23 PM BUILDER OPERATOR Gender Identity Not on file Sexual Orientation [...] COMPREHENSIVE METABOLIC PANEL Routine 11/09/2018 2:55 PM BUILDER OPERATOR Fibromyalgia HEPATITIS SCREEN ACUTE Routine 6 11:47 AM BUILDER OPERATOR Malaise and fatigue from Last 3 Months or Most Recently Relevant to Health Maintenance Results * (ABNORMAL) COMPREHENSIVE METABOLIC PANEL (11/09/2018 2:55 PM BUILDER OPERATOR) Glucose 87 74 - 106 mg/dL [facility] [...] BLOOD SPECIMEN / Unknown 11/09/2018 2:55 PM BUILDER OPERATOR 11/09/2018 Narrative Resulting Agency Comment [facility] [address] [place] [phone] [place] Brittany Weston MD LAB - CHEMISTRY ORDERABLES Final Result [facility] ACCOUNT BILL [address] [place] [address] * HEPATITIS SCREEN ACUTE (11/04/2015 11:47 AM BUILDER OPERATOR) Hepatitis A Virus Antibody IgM Non Reactive [...] BLOOD SPECIMEN / Unknown 11/04/2015 11:47 AM BUILDER OPERATOR 11/04/2015 3:44 PM BUILDER OPERATOR Narrative Resulting Agency Comment [facility] [address] [facility] [phone] Brittany Weston MD LAB - CHEMISTRY ORDERABLES Final Result [facility] INSURANCE BILL [address] [place] [address] from Last 3 Months or Most Recently Relevant to Health Maintenance Insurance [employer] Care Teams Pad Machine Offbearer Relationship Specialty [place] [address] [address] [place] [address] Rheumatology 02/03/16 [place] [address] [address] [place] [address] Orthopedic Surgery 02/03/17 Phani Gómez MD [address] [facility] 8 [place] [address] Surgery 06/27/17
--- OUTSIDE RECORDS SUMMARY | 2025-09-06 12:49 | XMS_ITS | Encounter Summary ---
Author Organization [facility] Health Address [address] [place] [address] Care Team Providers Care Orthopedic Cast Specialist Name Role Phone Brittany Weston MD Unavailable Radha Orosco Unavailable Unavailable Ry Martinez MD Unavailable Phani Gómez MD Unavailable Encounter Details Date Type Department Care Team (Late st Contact Info) Description 11/26/2015 [facility] Outpatient Visit [facility] [address] [place] [address] [place] [address] [address] [place] [address] Social History Tobacco Use Types Packs/Day Years Used Date Smoking Tobacco: Former Cigarettes 0 Q uit: 07/03/2000 Smokeless Tobacco: Never Alcohol Use Standard Drinks/Week Comments No 0 (1 standard drink = 0.6 oz pur e alcohol) Comments Unknown Sex and Gender Information Value Date Recorded Sex Assigned at Not on file Legal Sex Female 2:23 PM SHOES HAND SEWER Gender Identity Not on file Sexual Orientation Not on file Occupation Industry Job Start Date Job End Date disability Not on file Not on file Not on file documented as of this encounter Plan of Treatment Not on file documented as of this encounter Visit Diagnoses Not on filedocumented in this encounter Care Teams Orthopedic Cast Specialist Relationship Specialty Start [place] [address] [address] [place] [address] Rheumatology 02/03/16 Radha Orosco 12/30/16 12/30/16 Ry Martinez MD Orthopedic Surgery 02/03/17 Phani Gómez MD [address] [facility] [address] [place] [address] Surgery 06/27/17 documented as of this encounter
--- OUTSIDE RECORDS SUMMARY | 2025-09-06 12:49 | XMS_ITS | Clinical Summary ---
Author Organization [facility] [place] Address [address] [place] [address] Care Team Providers Care Chiropractic Teacher Name Role Phone Negrito Andrade MD Primary Care Prov ider Janak Jaime PHLEBOTOMY TECHNICIAN Unavailable [phone] Allergies Active Allergy Reactions Criticality Noted Date [...] Start post-surgery 180 tablet 11 3 Active HYDROcodone-jsoé taminophen (NORCO) 5-325 mg per tabletIndicatio ns:Pain [...] (01/27/2022): Added automatically from request for surgery [id number] Eating disorder, unspecified 01/26/2022 Bariatric surgery status [...] Encounters Date Type Department Care Team Description 08/07/2025 1:34 PM ALLOY WEIGHER - 08/07/2025 4:00 PM ALLOY WEIGHER Emergency [facility] Department [address] [place] [address] Fall, initial encounter (Primary Dx) Discharge Disposition: Discharge to home or self care 08/02/2025 12:53 PM CDT - 08/02/2025 11:59 PM CDT Hospital Encounter [facility] [address] [place] [address] Pain in right foot Discharge Disposition: Discharge [...] Name Status Comments Father of possibl e SD or CVA Mother Other 1 Other 2 [...] making you feel afraid or unsafe? Denies 08/07/2025 Comments No Sex and Gender Information Value Date Recorded Sex Assigned at Not on file Legal Sex Female 1:55 AM ALLOY WEIGHER Gender Identity Not on file Sexual Orientation Not on file Obstetrics History Para Term AB IAB SAB Ectopic Multiple Livin g Live Births 3 2 2 Date Outcome GA Total Labor Labor/2nd/3rd Weight Sex Type Anes PTL Almita A1 A5 Name Clin Term Term Last Filed Vital Signs Vital Sign Reading Time Taken Comments Blood Pressure 159/67 08/07/2025 1:17 PM ALLOY WEIGHER Pulse 65 08/07/2025 1:17 PM ALLOY WEIGHER Temperature 36.8 C (98.3 F) 08/07/2025 1:17 PM ALLOY WEIGHER Respiratory Rate 16 08/07/2025 1:17 PM ALLOY WEIGHER Oxygen Saturation 99% 08/07/2025 1:17 PM ALLOY WEIGHER Inhaled Oxygen Concentration - - Weight 119.3 kg (263 lb) 08/07/2025 1:17 PM ALLOY WEIGHER Height 154.9 cm (5' 1) 08/07/2025 1:17 PM ALLOY WEIGHER Body Mass Index 49.69 08/07/2025 1:17 PM ALLOY WEIGHER Plan of Treatment Health Maintenance Due Date [...] Name Priority Date/Time Associated Diagnosis Comments XR KNEE LEFT 1 OR 2 VIEWS ED 08/07/2025 3:[address] LUMBAR SPINE WO CONTRAST ED 08/07/2025 2:[address] HEAD WO CONTRAST ED 08/07/2025 2:[address] CERVICAL SPINE WO CONTRAST ED 08/07/2025 2:45 PM ALLOY WEIGHER XR HIP RIGHT 2 OR 3 VIEWS ED 08/07/2025 1:45 PM ALLOY WEIGHER XR FOOT RIGHT 2 VIEWS Schedule Routine, [...] Relevant to Health Maintenance Results * XR Knee Left 1 or 2 Views (08/07/2025 3:02 PM ALLOY WEIGHER) Anatomical Region Laterality Modality Lower Extremities, Knee Left Computed Radiography 08/07/2025 3:09 PM ALLOY WEIGHER Impressions 08/07/2025 3:09 PM ALLOY WEIGHER No acute osseous abnormality. Moderate to severe osteoarthritic changes. Electronically signed by: Candido Lara MD Narrative 08/07/2025 3:09 PM ALLOY WEIGHER EXAMINATION: XR KNEE LEFT 1 OR 2 VIEWS HISTORY: pain fall. TECHNIQUE: 2 views of the left knee COMPARISON: 04/29/2015 the radiograph FINDINGS: There is no fracture or dislocation appreciated. There are moderate to severe tricompartmental osteoarthritic changes. There is no sizable knee joint effusion. Procedure Note Candido Lara MD - 08/07/2025 EXAMINATION: XR KNEE LEFT 1 OR 2 VIEWS HISTORY: pain fall. TECHNIQUE: 2 views of the left knee COMPARISON: 04/29/2015 the radiograph FINDINGS: There is no fracture or dislocation appreciated. There are moderate to severe tricompartmental osteoarthritic changes. There is no sizable knee joint effusion. IMPRESSION: No acute osseous abnormality. Moderate to severe osteoarthritic changes. Electronically signed by: Candido Lara MD Marcia Land NP IMG XR PROCEDURES Final Resul t * CT Lumbar Spine WO Contrast (08/07/2025 2:46 PM ALLOY WEIGHER) Anatomical Region Laterality Modality Spine N/A Computed Tomogra phy 08/07/2025 3:01 PM ALLOY WEIGHER Impressions 08/07/2025 3:01 PM ALLOY WEIGHER 1. There is no acute fracture lumbar spine. 2. Mild to moderate lumbar disc degeneration with thickened ligamentum flavum and more advanced facet arthropathy as described. Level by level details and other findings as above. 3. Bilateral renal nonobstructing calculi. Electronically signed by: Antolin Velarde D.O. Narrative 08/07/2025 3:01 PM ALLOY WEIGHER EXAM DESCRIPTION:CT LUMBAR SPINE WO CONTRAST REASON FOR STUDY:Fell today, back pain, right hip pain. pain/fall TECHNIQUE: Axial images through the lumbar spine with sagittal and coronal reformatted images. Automated exposure control was used as a dose optimization technique for this examination. COMPARISON:No direct comparison is available. Relative portional CT abdomen and pelvis dated 06/04/2024. FINDINGS: SEGMENTATION: 5 [id number] lumbar-type vertebral bodies. Mild levoconvex curvature. ALIGNMENT: Grade 1 anterolisthesis of L4 on L5. VERTEBRAE:No definite acute fracture in the lumbar spine. Multilevel endplate degenerative change and marginal spur formation. More advanced mid to lower lumbar predominant facet arthropathy. The rounded lucency in the L3 vertebral body and right pedicle of L3 vertebral body are indeterminate but present on the previous CT abdomen and pelvis dated 06/04/2024. Similar lucency is noted in the right sacral ala. These are nonspecific reflect intraosseous hemangiomas in a patient without history of malignancy. Further evaluation with contrast enhanced MRI of the lumbar spine and sacrum can be obtained as clinically indicated. DISCS: Multilevel intervertebral disc height loss. HARDWARE: None in the spine. LOWER THORACIC: Incompletely imaged. No high-grade osseous spinal canal stenosis. INDIVIDUAL DISC LEVELS: Suboptimally evaluated by non-myelographic CT technique. Anterolisthesis of L4 on L5 with unroofing disc and thickened ligamentum flavum and facet arthropathy contributes to mild to moderate osseous spinal canal stenosis. Disc bulge with marginal spur formation with facet arthropathy contributes to osseous neural foraminal narrowing most noticeable from L3-L4 through L5-S1. SOFT TISSUES: Nonobstructing bilateral renal calculi measuring up to 3 mm on the right and 4 mm in the left. Calcified plaque in the abdominal aorta and imaged branch vessels. Procedure Note Syd Antolin, DO - 08/07/2025 EXAM DESCRIPTION:CT LUMBAR SPINE WO CONTRAST REASON FOR STUDY:Fell today, back pain, right hip pain. pain/fall TECHNIQUE: Axial images through the lumbar spine with sagittal and coronal reformatted images. Automated exposure control was used as a dose optimization technique for this examination. COMPARISON:No direct comparison is available. Relative portional CT abdomen and pelvis dated 06/04/2024. FINDINGS: SEGMENTATION: 5 [id number] lumbar-type vertebral bodies. Mild levoconvex curvature. ALIGNMENT: Grade 1 anterolisthesis of L4 on L5. VERTEBRAE:No definite acute fracture in the lumbar spine. Multilevel endplate degenerative change and marginal spur formation. More advanced mid to lower lumbar predominant facet arthropathy. The rounded lucency in the L3 vertebral body and right pedicle of L3 vertebral body are indeterminate but present on the previous CT abdomen and pelvis dated 06/04/2024. Similar lucency is noted in the right sacral ala. These are nonspecific reflect intraosseous hemangiomas in a patient without history of malignancy. Further evaluation with contrast enhanced MRI of the lumbar spine and sacrum can be obtained as clinically indicated. DISCS: Multilevel intervertebral disc height loss. HARDWARE: None in the spine. LOWER THORACIC: Incompletely imaged. No high-grade osseous spinal canal stenosis. INDIVIDUAL DISC LEVELS: Suboptimally evaluated by non-myelographic CT technique. Anterolisthesis of L4 on L5 with unroofing disc and thickened ligamentum flavum and facet arthropathy contributes to mild to moderate osseous spinal canal stenosis. Disc bulge with marginal spur formation with facet arthropathy contributes to osseous neural foraminal narrowing most noticeable from L3-L4 through L5-S1. SOFT TISSUES: Nonobstructing bilateral renal calculi measuring up to 3 mm on the right and 4 mm in the left. Calcified plaque in the abdominal aorta and imaged branch vessels. IMPRESSION: 1. There is no acute fracture lumbar spine. 2. Mild to moderate lumbar disc degeneration with thickened ligamentum flavum and more advanced facet arthropathy as described. Level by level details and other findings as above. 3. Bilateral renal nonobstructing calculi. Electronically signed by: Antolin Velarde D.O. Marcia Land NP IMG CT PROCEDURES Final Resul t * CT Cervical Spine WO Contrast (08/07/2025 2:45 PM ALLOY WEIGHER) Anatomical Region Laterality Modality Spine N/A Computed Tomogra phy 08/07/2025 3:07 PM ALLOY WEIGHER Impressions 08/07/2025 3:07 PM ALLOY WEIGHER 1. No acute intracranial process. 2. Left parietal scalp hematoma and laceration. 3. No cervical spine fracture appreciated. Degenerative changes as above. Electronically signed by: Candido Lara MD Narrative 08/07/2025 3:07 PM ALLOY WEIGHER EXAMINATION: CT CERVICAL SPINE WO CONTRAST, CT HEAD WO CONTRAST HISTORY: fall TECHNIQUE: CT of the head was performed with images acquired from skull base to vertex without intravenous contrast. CT of the cervical spine was performed according to the standard protocol without intravenous contrast. COMPARISON: None. FINDINGS: HEAD: Support Devices: None. Bones/Soft Tissues: No acute displaced fracture. No significant soft tissue injury. Parenchyma/Extra-axial: No acute intracranial hemorrhage. No significant mass effect or midline shift. No acute infarction. Ventricles: No acute hydrocephalus. Sinuses: No significant paranasal sinus disease. Orbits: Unremarkable. Mastoids: No significant effusion. Other: There is a small left parietal scalp hematoma and laceration. CERVICAL SPINE: Alignment: No acute traumatic spondylolisthesis. Craniocervical Junction: There are degenerative changes about the odontoid interval. Vertebrae: No fractures appreciated. Disks: There is severe disc space narrowing at C6-C7. Individual Levels: No high-grade spinal canal or neural foraminal narrowing. Soft Tissues: No acute abnormality. Other: No significant abnormality. Procedure Note Candido Lara MD - 08/07/2025 EXAMINATION: CT CERVICAL SPINE WO CONTRAST, CT HEAD WO CONTRAST HISTORY: fall TECHNIQUE: CT of the head was performed with images acquired from skull base to vertex without intravenous contrast. CT of the cervical spine was performed according to the standard protocol without intravenous contrast. COMPARISON: None. FINDINGS: HEAD: Support Devices: None. Bones/Soft Tissues: No acute displaced fracture. No significant soft tissue injury. Parenchyma/Extra-axial: No acute intracranial hemorrhage. No significant mass effect or midline shift. No acute infarction. Ventricles: No acute hydrocephalus. Sinuses: No significant paranasal sinus disease. Orbits: Unremarkable. Mastoids: No significant effusion. Other: There is a small left parietal scalp hematoma and laceration. CERVICAL SPINE: Alignment: No acute traumatic spondylolisthesis. Craniocervical Junction: There are degenerative changes about the odontoid interval. Vertebrae: No fractures appreciated. Disks: There is severe disc space narrowing at C6-C7. Individual Levels: No high-grade spinal canal or neural foraminal narrowing. Soft Tissues: No acute abnormality. Other: No significant abnormality. IMPRESSION: 1. No acute intracranial process. 2. Left parietal scalp hematoma and laceration. 3. No cervical spine fracture appreciated. Degenerative changes as above. Electronically signed by: Candido Lara MD Marcia Land NP IMG CT PROCEDURES Final Resul t * CT Head WO Contrast (08/07/2025 2:45 PM ALLOY WEIGHER) Anatomical Region Laterality Modality Head and Neck N/A Computed Tomogra phy 08/07/2025 3:07 PM ALLOY WEIGHER Impressions 08/07/2025 3:07 PM ALLOY WEIGHER 1. No acute intracranial process. 2. Left parietal scalp hematoma and laceration. 3. No cervical spine fracture appreciated. Degenerative changes as above. Electronically signed by: Candido Lara MD Narrative 08/07/2025 3:07 PM ALLOY WEIGHER EXAMINATION: CT CERVICAL SPINE WO CONTRAST, CT HEAD WO CONTRAST HISTORY: fall TECHNIQUE: CT of the head was performed with images acquired from skull base to vertex without intravenous contrast. CT of the cervical spine was performed according to the standard protocol without intravenous contrast. COMPARISON: None. FINDINGS: HEAD: Support Devices: None. Bones/Soft Tissues: No acute displaced fracture. No significant soft tissue injury. Parenchyma/Extra-axial: No acute intracranial hemorrhage. No significant mass effect or midline shift. No acute infarction. Ventricles: No acute hydrocephalus. Sinuses: No significant paranasal sinus disease. Orbits: Unremarkable. Mastoids: No significant effusion. Other: There is a small left parietal scalp hematoma and laceration. CERVICAL SPINE: Alignment: No acute traumatic spondylolisthesis. Craniocervical Junction: There are degenerative changes about the odontoid interval. Vertebrae: No fractures appreciated. Disks: There is severe disc space narrowing at C6-C7. Individual Levels: No high-grade spinal canal or neural foraminal narrowing. Soft Tissues: No acute abnormality. Other: No significant abnormality. Procedure Note Candido Lara MD - 08/07/2025 EXAMINATION: CT CERVICAL SPINE WO CONTRAST, CT HEAD WO CONTRAST HISTORY: fall TECHNIQUE: CT of the head was performed with images acquired from skull base to vertex without intravenous contrast. CT of the cervical spine was performed according to the standard protocol without intravenous contrast. COMPARISON: None. FINDINGS: HEAD: Support Devices: None. Bones/Soft Tissues: No acute displaced fracture. No significant soft tissue injury. Parenchyma/Extra-axial: No acute intracranial hemorrhage. No significant mass effect or midline shift. No acute infarction. Ventricles: No acute hydrocephalus. Sinuses: No significant paranasal sinus disease. Orbits: Unremarkable. Mastoids: No significant effusion. Other: There is a small left parietal scalp hematoma and laceration. CERVICAL SPINE: Alignment: No acute traumatic spondylolisthesis. Craniocervical Junction: There are degenerative changes about the odontoid interval. Vertebrae: No fractures appreciated. Disks: There is severe disc space narrowing at C6-C7. Individual Levels: No high-grade spinal canal or neural foraminal narrowing. Soft Tissues: No acute abnormality. Other: No significant abnormality. IMPRESSION: 1. No acute intracranial process. 2. Left parietal scalp hematoma and laceration. 3. No cervical spine fracture appreciated. Degenerative changes as above. Electronically signed by: Candido Lara MD Marcia D. Shanda PHLEBOTOMY TECHNICIAN IMG CT PROCEDURES Final Resul t * XR Hip Right 2 or 3 Views (08/07/2025 1:45 PM ALLOY WEIGHER) Anatomical Region Laterality Modality Lower Extremities, Hip, Pelvis Right C omputed Radiography 08/07/2025 1:54 PM ALLOY WEIGHER Impressions 08/07/2025 1:54 PM ALLOY WEIGHER No acute osseous abnormality of the right hip. Electronically signed by: Candido Lara MD Narrative 08/07/2025 1:54 PM ALLOY WEIGHER EXAMINATION: XR HIP RIGHT 2 OR 3 VIEWS HISTORY: pain. TECHNIQUE: 2 views of the right hip COMPARISON: Pelvic radiographs 01/29/2017 FINDINGS: There is no fracture or dislocation appreciated. Soft tissues are unremarkable. Procedure Note Candido Lara MD - 08/07/2025 EXAMINATION: XR HIP RIGHT 2 OR 3 VIEWS HISTORY: pain. TECHNIQUE: 2 views of the right hip COMPARISON: Pelvic radiographs 01/29/2017 FINDINGS: There is no fracture or dislocation appreciated. Soft tissues are unremarkable. IMPRESSION: No acute osseous abnormality of the right hip. Electronically signed by: Candido Lara MD Marcia Land NP IMG XR PROCEDURES Final Resul t * XR Foot Right 2 Views (08/02/2025 [...] AM CDT) Hep A IgM Nonreactive Nonreactive [facility] ([facility]) Comment: Interpretive Data: If Hep A IgM Ab is reported as Equivocal, a new sample should be drawn in two weeks for testing. Current interpretive data was last revised on 19. Testing performed by: [address] [id number] Hep B core IgM Nonreactive Nonreactive [facility] ([facility]) Comment: Interpretive Data If HepB Core IgM Ab is reported as Equivocal, a new sample should be drawn in two weeks for testing. Current interpretive data was last revised on 19. Testing performed by: [facility], [address] [place] [address]., [id number] Hep C Ab Nonreactive Nonreactive [facility] ([facility]) Comment: Interpretive Data Nonreactive: Antibodies to [...] last revised on 2019. Testing performed by: [facility], [address] [place] [address]., [id number] HepBsAg Nonreactive Nonreactive [facility] ([facility]) Comment:Testing performed by : [facility], [address] [place] [address]., [id number] Blood 01/31/2023 7:50 AM CDT 01/31/2023 2:28 PM CDT Denise Bennett MD LAB MICROBIOLOGY - GENER AL ORDERABLES Final Result [facility] ([place]) 1 [facility] [place] [address] * Screening Mammogram Bilateral W Ezra (06/14/2019 [...] system to notify patient's of yearly mammograms. Self Screening Mammogram IMG MAMMO PROCEDURES Fi nal Result from Last 3 Months or Most Recently Relevant to Health Maintenance Insurance [employer] MEDICARE [facility] A[employer] MEDICARE GOLD Advance Directives For more information, please contact: [phone] * Full Code (Latest Code Status on File) Date Activated Date Inactivated Comments 04/14/2023 10:59 AM 04/15/2023 10:08 PM Care Teams Chiropractic Teacher Relationship Specialty Start Date End Date Negrito Andrade MD PCP - General 11/18/16 Janak Jaime NP [address] [facility] [id number] [place] [address] Nurse Practitioner General Surgery 04/15/23
--- OUTSIDE RECORDS SUMMARY | 2025-09-06 12:49 | XMS_ITS | Encounter Summary ---
Author Organization [facility] Health Address [address] [place] [address] Care Team Providers Care Fountain Clerk Name Role Phone Brittany Weston MD Unavailable Radha Orosco Unavailable Unavailable Ry Martinez MD Unavailable Phani Gómez MD Unavailable Encounter Details Date Type Department Care Team (Late st Contact Info) Description 11/04/2015 [facility] Outpatient Visit [facility] [address] [place] [address] [place] [address] [place] [address] Social History Tobacco Use Types Packs/Day Years Used Date Smoking Tobacco: Former Cigarettes 0 Q uit: 07/03/2000 Smokeless Tobacco: Never Alcohol Use Standard Drinks/Week Comments No 0 (1 standard drink = 0.6 oz pur e alcohol) Comments Unknown Sex and Gender Information Value Date Recorded Sex Assigned at Not on file Legal Sex 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 Gender Identity Not on file Sexual Orientation Not on file Occupation Industry Job Start Date Job End Date disability Not on file Not on file Not on file documented as of this encounter Plan of Treatment Not on file documented as of this encounter Visit Diagnoses Not on filedocumented in this encounter Care Teams Fountain Clerk Relationship Specialty Start [place] [address] [place] [address] Rheumatology 02/03/16 Radha Orosco 12/30/16 12/30/16 Ry Martinez MD Orthopedic Surgery 02/03/17 Phani Gómez MD [address] [facility] [address] [place] [address] Surgery 06/27/17 documented as of this encounter
--- OUTSIDE RECORDS SUMMARY | 2025-09-06 12:49 | XMS_ITS | Clinical Summary ---
Author Organization [facility] Care Team Providers Care Staple Laster Name Role Phone Negrito Andrade MD Primary [...] tablet by mouth twice daily Active ergocalciferol 08307 UNIT PO CAPS Take by mouth. Take [...] Comments Blood Pressure 95/63 09/20/2019 11:08 AM [facility] Pulse 73 09/20/2019 11:08 AM [facility] Temperature 36 C (96.8 F) 09/20/2019 11:08 AM [facility] Respiratory Rate 16 09/20/2019 11:08 AM [facility] Oxygen Saturation 97% 09/20/2019 11:08 AM [facility]AT[facility] Inhaled Oxygen Concentration - - Weight 113.4 kg (250 lb) 08/10/2019 11:00 AM [facility] Height 154.9 cm (5' 1) 08/10/2019 11:00 AM [facility] Body Mass Index 47.24 08/10/2019 11:00 AM [facility] Plan of Treatment Health Maintenance Due Date [...] topic Insurance MEDICARE C [employer] Care Teams Staple Laster Relationship Specialty Start Date End Date Negrito Andrade MD PCP - General Family Medicine 11/16/15
== END 2025-09-06 12:46 | disposition home or self-care (01) ==
PROVIDERS: PCP Family Medicine; Visit Provider Family Medicine
DX: M79.671 Pain in right foot (principal)
CPT/HCPCS: 73630